=== PATIENT | male | born 1930 | race Caucasian/White ===

== ENCOUNTER 2017-04-14 09:48 | Emergency (ER) | payer MEDICARE, BC ==
[~2017-04-14] VITALS: Ht 5954.8 cm; Wt 97.7 kg
[~2017-04-14 09:48] MED LIST: ACET-2389 PO; ALBU2.5V7 NEB; CHOL2000 PO; DOCU100C40 PO; DUTA1CPM PO; FESO8TAB PO; FOLI1TAB16 PO; FORM20VI IH; FURO40TA4 PO; GABA-532 PO; INSU100I29 SQ; IPRA3AMP9 IH; IRON150C13 PO; LEVO125T PO; LIRA0.6P SQ; LUBI8CAP PO; PANT-47 PO; POTA10CA44 PO; PRAV40TA PO; PRED5TAB PO; RIVA15TA PO; ROFL500T7 PO; SOTA80TA PO; THEO100C PO
[2017-04-14 10:28] LABS: CLARITY,URINE SLIGHTLY CLOUDY (Clear); COLOR,URINE STRAW (Yellow); GLUCOSE, URINE 250 mg/dl (Neg); KETONES,URINE NEGATIVE (Neg); LEUKOCYTE ESTERASE ,URINE NEGATIVE (Neg); NITRITES, URINE NEGATIVE (Neg); OCCULT BLOOD,URINE TRACE-LYSED (Neg); PROTEIN,URINE NEGATIVE (Neg); UROBILINOGEN,URINE 0.2 E.U/dL (0.2-1.0)
[2017-04-14 10:33] LABS: UA COLLECTION TYPE CLN CATCH MIDSTREAM
[2017-04-14 10:34] LABS: HYALINE CASTS 0-3 /LPF (NEGATIVE); MUCUS STRANDS FEW /LPF (Neg); SQUAMOUS EPITHELIAL CELL,UR FEW /LPF (FEW)
[2017-04-14 10:35] LABS: BACTERIA,URINE FEW /HPF (Neg); RBC,URINE 0-2 /HPF (0-2); WBC,URINE 0-4 /HPF (0-4)
[2017-04-14] MEDS ORDERED: CELE-193 PO (11:25)
[2017-04-14] MEDS ORDERED: HYDR-565 PO (11:25)
[2017-04-14] MEDS ORDERED: celeCOXIB 100mg capsule PO ONE (11:25)
[2017-04-14] MEDS ORDERED: HYDROcodone/acetaminophen 10/325mg tab PO ONE (11:25)
[2017-04-14 11:42] VITALS: BP 135/80
== END 2017-04-14 11:44 | disposition home or self-care (01) ==
LOC: ER 09:49
DX: S39.012A Strain of muscle, fascia and tendon of lower back, initial encounter (principal); I11.0 Hypertensive heart disease with heart failure; I50.9 Heart failure, unspecified; J44.9 Chronic obstructive pulmonary disease, unspecified; I48.91 Unspecified atrial fibrillation; I25.10 Atherosclerotic heart disease of native coronary artery without angina pectoris; K21.9 Gastro-esophageal reflux disease without esophagitis; E11.9 Type 2 diabetes mellitus without complications; E78.00 Pure hypercholesterolemia, unspecified; Z86.73 Personal history of transient ischemic attack (TIA), and cerebral infarction without residual deficits; Z88.0 Allergy status to penicillin; Z87.11 Personal history of peptic ulcer disease; Z87.891 Personal history of nicotine dependence; Z88.2 Allergy status to sulfonamides; X58.XXXA Exposure to other specified factors, initial encounter; Y93.89 Activity, other specified; Y92.89 Other specified places as the place of occurrence of the external cause; Y99.8 Other external cause status
CPT/HCPCS: 81001; 99283

== ENCOUNTER 2017-07-01 16:15 | Emergency (ER) | payer MEDICARE, BC ==
[~2017-07-01] VITALS: Ht 177.8 cm; Wt 90.0 kg
[~2017-07-01 16:15] MED LIST changes: +HYDR-569 PO; +MELO7.5T12 PO
[2017-07-01 17:13] LABS: BASOPHILS % (AUTO) 0.2 % (0-1); EOSINOPHILS % (AUTO) 0.3 % (0-6); HEMATOCRIT 39.9 % (42.0-52.0); HEMOGLOBIN 13.4 g/dl (14.0-17.9); LYMPHOCYTES # (AUTO) 1.1 X10'3 (1.1-4.8); LYMPHOCYTES % (AUTO) 8.9 % (21-51); MEAN CORPUSCULAR HEMOGLOBIN 30.5 PG (27.0-31.0); MEAN CORPUSCULAR HGB CONC 33.5 % (33.0-36.5); MEAN CORPUSCULAR VOLUME 91.1 FL (78-98); MEAN PLATELET VOLUME 7.3 FL (7.4-10.4); MONOCYTES # (AUTO) 0.8 X10'3 (0-0.9); MONOCYTES % (AUTO) 6.3 % (2-12); NEUTROPHILS # (AUTO) 10.1 X10'3 (1.8-7.7); NEUTROPHILS % (AUTO) 84.3 % (42-75); PLATELET COUNT 226 X10'3 (140-440); RED BLOOD COUNT 4.38 X10'6 (4.70-6.10)
[2017-07-01 17:27] LABS: PARTIAL THROMBOPLASTIN TIME 29 SECONDS (22-32); PROTHROMBIN TIME 10.5 SECONDS (9.0-12.0)
[2017-07-01 17:31] LABS: ALANINE AMINOTRANSFERASE 41 U/L (12-78); ALBUMIN 3.1 G/DL (3.4-5.0); ALBUMIN/GLOBULIN RATIO 0.8 (1.1-1.5); ALKALINE PHOSPHATASE 100 IU/L (46-116); ANION GAP 9 (8-16); ASPARTATE AMINO TRANSFERASE 24 U/L (10-37); BILIRUBIN,TOTAL 0.4 MG/DL (0.1-1.0); BLOOD UREA NITROGEN 31 MG/DL (7-18); BUN/CREATININE RATIO 20.4 (5.4-32.0); CALCIUM 9.6 MG/DL (8.5-10.1); CHLORIDE 103 MMOL/L (99-107); CREATININE 1.52 MG/DL (0.60-1.10); GLUCOSE 178 MG/DL (70-104); POTASSIUM 4.6 MMOL/L (3.5-5.1); SODIUM 140 MMOL/L (135-145); TOTAL CARBON DIOXIDE 27.7 MMOL/L (24-32); TOTAL PROTEIN 6.8 G/DL (6.4-8.2); eGFR 43 ML/MIN
[2017-07-01] MEDS ORDERED: ipratropium/albuterol 3ml nebule NEB ONE (17:50)
[2017-07-01] MEDS ORDERED: methylPREDNISolone sod succ 125mg/2ml vial IV ONE (17:50)
[2017-07-01 19:41] VITALS: BP 138/95
[2017-07-01] MEDS ORDERED: AZIT250T PO (20:12)
[2017-07-01] MEDS ORDERED: LEVO750T21 PO (20:14)
== END 2017-07-01 20:28 | disposition home or self-care (01) ==
LOC: ER 16:15
DX: J40 Bronchitis, not specified as acute or chronic (principal); J44.9 Chronic obstructive pulmonary disease, unspecified; R22.41 Localized swelling, mass and lump, right lower limb; I25.10 Atherosclerotic heart disease of native coronary artery without angina pectoris; I11.0 Hypertensive heart disease with heart failure; I50.9 Heart failure, unspecified; E11.9 Type 2 diabetes mellitus without complications; K21.9 Gastro-esophageal reflux disease without esophagitis; E78.00 Pure hypercholesterolemia, unspecified; I48.91 Unspecified atrial fibrillation; Z86.73 Personal history of transient ischemic attack (TIA), and cerebral infarction without residual deficits; Z98.890 Other specified postprocedural states; Z88.0 Allergy status to penicillin; Z88.2 Allergy status to sulfonamides; Z79.4 Long term (current) use of insulin; Z79.899 Other long term (current) drug therapy; Z87.891 Personal history of nicotine dependence; Z90.49 Acquired absence of other specified parts of digestive tract; Z87.11 Personal history of peptic ulcer disease
CPT/HCPCS: 36415; 71046; 80053; 83605; 84484; 85025; 85610; 85730; 87040; 93005; 94640; 94760; 96374; 99285; J2930

== ENCOUNTER 2017-09-24 14:54 | Emergency (ER) | payer MEDICARE, BC ==
[~2017-09-24] VITALS: Ht 177.8 cm; Wt 85.8 kg
[2017-09-24] MEDS ORDERED: LIDOcaine 1%/PF 5ML 10 MG/ML VIAL IJ ONE (17:15)
[2017-09-24] MEDS ORDERED: CLIN150C2 PO (18:28)
[2017-09-24] MEDS ORDERED: CEPH-572 PO (18:28)
[2017-09-24 18:52] VITALS: BP 125/89
== END 2017-09-24 18:54 | disposition home or self-care (01) ==
LOC: ER 14:55
DX: S70.11XA Contusion of right thigh, initial encounter (principal); L02.214 Cutaneous abscess of groin; I48.91 Unspecified atrial fibrillation; I25.10 Atherosclerotic heart disease of native coronary artery without angina pectoris; I11.0 Hypertensive heart disease with heart failure; I50.9 Heart failure, unspecified; E78.00 Pure hypercholesterolemia, unspecified; J44.9 Chronic obstructive pulmonary disease, unspecified; K21.9 Gastro-esophageal reflux disease without esophagitis; E11.9 Type 2 diabetes mellitus without complications; Z90.49 Acquired absence of other specified parts of digestive tract; Z98.890 Other specified postprocedural states; Z86.73 Personal history of transient ischemic attack (TIA), and cerebral infarction without residual deficits; Z60.2 Problems related to living alone; Z88.0 Allergy status to penicillin; Z88.2 Allergy status to sulfonamides; Z79.4 Long term (current) use of insulin; Z79.899 Other long term (current) drug therapy; X58.XXXA Exposure to other specified factors, initial encounter; Y93.89 Activity, other specified; Y92.89 Other specified places as the place of occurrence of the external cause; Y99.8 Other external cause status
CPT/HCPCS: 10061; 87070; 87077; 87186; 99285; A6266; A6449; J2001

== ENCOUNTER 2017-10-04 09:50 | Day surgery (SDC) | payer MEDICARE, BC ==
[~2017-10-04 09:50] MED LIST changes: +CLIN150C2 PO
[2017-10-04] MEDS ORDERED: LIDOcaine 2% 5ml jelly ONE (11:48)
[2017-10-04] MEDS ORDERED: LINE600T36 PO (12:37)
== END 2017-10-04 12:49 | disposition home or self-care (01) ==
LOC: WOUND CARE 09:50
PROVIDERS: ATTEND Surgery
DX: E11.622 Type 2 diabetes mellitus with other skin ulcer (principal); L97.221 Non-pressure chronic ulcer of left calf limited to breakdown of skin; L97.211 Non-pressure chronic ulcer of right calf limited to breakdown of skin; L97.111 Non-pressure chronic ulcer of right thigh limited to breakdown of skin; I25.10 Atherosclerotic heart disease of native coronary artery without angina pectoris; J44.9 Chronic obstructive pulmonary disease, unspecified; K21.9 Gastro-esophageal reflux disease without esophagitis; I11.0 Hypertensive heart disease with heart failure; I50.9 Heart failure, unspecified; E78.00 Pure hypercholesterolemia, unspecified; I48.91 Unspecified atrial fibrillation; Z90.49 Acquired absence of other specified parts of digestive tract; Z79.4 Long term (current) use of insulin; Z79.899 Other long term (current) drug therapy; Z86.73 Personal history of transient ischemic attack (TIA), and cerebral infarction without residual deficits
CPT/HCPCS: 36416; 82948; 97597; A6021; A6206; A6212

== ENCOUNTER 2017-10-13 08:42 | Day surgery (SDC) | payer MEDICARE, BC ==
[~2017-10-13 08:42] MED LIST changes: +LINE600T36 PO
[2017-10-13] MEDS ORDERED: LIDOcaine 2% 5ml jelly ONE (09:49)
== END 2017-10-13 11:17 | disposition home or self-care (01) ==
LOC: WOUND CARE 08:42
PROVIDERS: ATTEND Surgery
DX: E11.622 Type 2 diabetes mellitus with other skin ulcer (principal); L97.221 Non-pressure chronic ulcer of left calf limited to breakdown of skin; L97.211 Non-pressure chronic ulcer of right calf limited to breakdown of skin; L97.111 Non-pressure chronic ulcer of right thigh limited to breakdown of skin; I25.10 Atherosclerotic heart disease of native coronary artery without angina pectoris; I80.201 Phlebitis and thrombophlebitis of unspecified deep vessels of right lower extremity; J44.9 Chronic obstructive pulmonary disease, unspecified; K21.9 Gastro-esophageal reflux disease without esophagitis; I11.0 Hypertensive heart disease with heart failure; I50.9 Heart failure, unspecified; E78.00 Pure hypercholesterolemia, unspecified; I48.91 Unspecified atrial fibrillation; Z90.49 Acquired absence of other specified parts of digestive tract; Z79.4 Long term (current) use of insulin; Z79.899 Other long term (current) drug therapy; Z86.73 Personal history of transient ischemic attack (TIA), and cerebral infarction without residual deficits
CPT/HCPCS: 11042; 36416; 82948; 93971; 97597; A6021; A6206; A6212

== ENCOUNTER 2017-10-20 08:24 | Outpatient (CLI) | payer MEDICARE, BC ==
[2017-10-20] MEDS ORDERED: LIDOcaine 2% 5ml jelly ONE (09:24)
== END 2017-10-20 10:43 | disposition home or self-care (01) ==
LOC: WOUND CARE 08:24 → EDSTATUS 08:30 → WOUND CARE 10:43
PROVIDERS: ATTEND Surgery
DX: E11.622 Type 2 diabetes mellitus with other skin ulcer (principal); L97.211 Non-pressure chronic ulcer of right calf limited to breakdown of skin; L97.111 Non-pressure chronic ulcer of right thigh limited to breakdown of skin; I80.201 Phlebitis and thrombophlebitis of unspecified deep vessels of right lower extremity; I25.10 Atherosclerotic heart disease of native coronary artery without angina pectoris; J44.9 Chronic obstructive pulmonary disease, unspecified; K21.9 Gastro-esophageal reflux disease without esophagitis; I11.0 Hypertensive heart disease with heart failure; I50.9 Heart failure, unspecified; E78.00 Pure hypercholesterolemia, unspecified; I48.91 Unspecified atrial fibrillation; I89.0 Lymphedema, not elsewhere classified; Z90.49 Acquired absence of other specified parts of digestive tract; Z79.4 Long term (current) use of insulin; Z79.899 Other long term (current) drug therapy; Z86.73 Personal history of transient ischemic attack (TIA), and cerebral infarction without residual deficits
CPT/HCPCS: 36416; 71046; 82948; 99215; A6021; A6206; A6212

== ENCOUNTER 2017-10-27 08:10 | Day surgery (SDC) | payer MEDICARE, BC ==
[~2017-10-27 08:10] MED LIST changes: -CLIN150C2 PO
[2017-10-27] MEDS ORDERED: LIDOcaine 2% 5ml jelly ONE (09:56)
[2017-10-27] MEDS ORDERED: mupirocin 2% ointment 22GM ONE (10:31)
== END 2017-10-27 11:06 | disposition home or self-care (01) ==
LOC: WOUND CARE 08:10
PROVIDERS: ATTEND Surgery
DX: E11.622 Type 2 diabetes mellitus with other skin ulcer (principal); L97.211 Non-pressure chronic ulcer of right calf limited to breakdown of skin; L97.111 Non-pressure chronic ulcer of right thigh limited to breakdown of skin; I80.201 Phlebitis and thrombophlebitis of unspecified deep vessels of right lower extremity; I25.10 Atherosclerotic heart disease of native coronary artery without angina pectoris; J44.9 Chronic obstructive pulmonary disease, unspecified; K21.9 Gastro-esophageal reflux disease without esophagitis; I11.0 Hypertensive heart disease with heart failure; I50.9 Heart failure, unspecified; E78.00 Pure hypercholesterolemia, unspecified; I48.91 Unspecified atrial fibrillation; I89.0 Lymphedema, not elsewhere classified; Z90.49 Acquired absence of other specified parts of digestive tract; Z79.4 Long term (current) use of insulin; Z79.899 Other long term (current) drug therapy; Z86.73 Personal history of transient ischemic attack (TIA), and cerebral infarction without residual deficits
CPT/HCPCS: 11042; 36416; 82948; 97597; A6021; A6206; A6212; A6446

== ENCOUNTER 2017-11-04 08:15 | Day surgery (SDC) | payer MEDICARE, BC ==
[2017-11-04] MEDS ORDERED: LIDOcaine 2% 5ml jelly ONE (09:35)
== END 2017-11-04 10:36 | disposition home or self-care (01) ==
LOC: WOUND CARE 08:15
PROVIDERS: ATTEND Surgery
DX: E11.622 Type 2 diabetes mellitus with other skin ulcer (principal); L97.211 Non-pressure chronic ulcer of right calf limited to breakdown of skin; L97.111 Non-pressure chronic ulcer of right thigh limited to breakdown of skin; I80.201 Phlebitis and thrombophlebitis of unspecified deep vessels of right lower extremity; I25.10 Atherosclerotic heart disease of native coronary artery without angina pectoris; J44.9 Chronic obstructive pulmonary disease, unspecified; K21.9 Gastro-esophageal reflux disease without esophagitis; I11.0 Hypertensive heart disease with heart failure; I50.9 Heart failure, unspecified; E78.00 Pure hypercholesterolemia, unspecified; I48.91 Unspecified atrial fibrillation; I89.0 Lymphedema, not elsewhere classified; Z90.49 Acquired absence of other specified parts of digestive tract; Z79.4 Long term (current) use of insulin; Z79.899 Other long term (current) drug therapy; Z86.73 Personal history of transient ischemic attack (TIA), and cerebral infarction without residual deficits
CPT/HCPCS: 11042; 97597; A6021; A6206; A6212

== ENCOUNTER 2017-11-11 08:10 | Day surgery (SDC) | payer MEDICARE, BC ==
[2017-11-11] MEDS ORDERED: LIDOcaine 2% 5ml jelly ONE (09:48)
== END 2017-11-11 10:16 | disposition home or self-care (01) ==
LOC: WOUND CARE 08:10
PROVIDERS: ATTEND Surgery
DX: E11.622 Type 2 diabetes mellitus with other skin ulcer (principal); L97.111 Non-pressure chronic ulcer of right thigh limited to breakdown of skin; I80.201 Phlebitis and thrombophlebitis of unspecified deep vessels of right lower extremity; I25.10 Atherosclerotic heart disease of native coronary artery without angina pectoris; J44.9 Chronic obstructive pulmonary disease, unspecified; K21.9 Gastro-esophageal reflux disease without esophagitis; I11.0 Hypertensive heart disease with heart failure; I50.9 Heart failure, unspecified; E78.00 Pure hypercholesterolemia, unspecified; I48.91 Unspecified atrial fibrillation; I89.0 Lymphedema, not elsewhere classified; Z90.49 Acquired absence of other specified parts of digestive tract; Z79.4 Long term (current) use of insulin; Z79.899 Other long term (current) drug therapy; Z86.73 Personal history of transient ischemic attack (TIA), and cerebral infarction without residual deficits
CPT/HCPCS: 36416; 82948; 97597; A6021; A6206; A6212

== ENCOUNTER 2017-11-18 08:10 | Day surgery (SDC) | payer MEDICARE, BC | END 2017-11-18 10:25 | disposition home or self-care (01) | LOC: WOUND CARE 08:10 | PROVIDERS: ATTEND Surgery | DX: E11.622 Type 2 diabetes mellitus with other skin ulcer (principal); L97.111 Non-pressure chronic ulcer of right thigh limited to breakdown of skin; I80.201 Phlebitis and thrombophlebitis of unspecified deep vessels of right lower extremity; I25.10 Atherosclerotic heart disease of native coronary artery without angina pectoris; J44.9 Chronic obstructive pulmonary disease, unspecified; K21.9 Gastro-esophageal reflux disease without esophagitis; I11.0 Hypertensive heart disease with heart failure; I50.9 Heart failure, unspecified; E78.00 Pure hypercholesterolemia, unspecified; I48.91 Unspecified atrial fibrillation; I89.0 Lymphedema, not elsewhere classified; Z90.49 Acquired absence of other specified parts of digestive tract; Z79.4 Long term (current) use of insulin; Z79.899 Other long term (current) drug therapy; Z86.73 Personal history of transient ischemic attack (TIA), and cerebral infarction without residual deficits | CPT/HCPCS: 97597; A6021; A6206; A6212 ==

== ENCOUNTER 2017-11-25 08:10 | Day surgery (SDC) | payer MEDICARE, BC ==
[2017-11-25] MEDS ORDERED: LIDOcaine/PRILOcaine 5gm cream TP ONE (09:46)
== END 2017-11-25 10:16 | disposition home or self-care (01) ==
LOC: WOUND CARE 08:10
PROVIDERS: ATTEND Surgery
DX: E11.622 Type 2 diabetes mellitus with other skin ulcer (principal); L97.111 Non-pressure chronic ulcer of right thigh limited to breakdown of skin; I80.201 Phlebitis and thrombophlebitis of unspecified deep vessels of right lower extremity; I25.10 Atherosclerotic heart disease of native coronary artery without angina pectoris; J44.9 Chronic obstructive pulmonary disease, unspecified; K21.9 Gastro-esophageal reflux disease without esophagitis; I11.0 Hypertensive heart disease with heart failure; I50.9 Heart failure, unspecified; E78.00 Pure hypercholesterolemia, unspecified; I48.91 Unspecified atrial fibrillation; I89.0 Lymphedema, not elsewhere classified; Z90.49 Acquired absence of other specified parts of digestive tract; Z79.4 Long term (current) use of insulin; Z79.899 Other long term (current) drug therapy; Z86.73 Personal history of transient ischemic attack (TIA), and cerebral infarction without residual deficits
CPT/HCPCS: 36416; 82948; 97597; A6021; A6212

== ENCOUNTER 2017-12-09 08:35 | Day surgery (SDC) | payer MEDICARE, BC ==
[~2017-12-09 08:35] MED LIST changes: -LINE600T36 PO
[2017-12-09] MEDS ORDERED: LIDOcaine 1%/PF 5ML 10 MG/ML VIAL ONE (10:11)
== END 2017-12-09 10:33 | disposition home or self-care (01) ==
LOC: WOUND CARE 08:35
PROVIDERS: ATTEND Surgery
DX: E11.622 Type 2 diabetes mellitus with other skin ulcer (principal); L97.111 Non-pressure chronic ulcer of right thigh limited to breakdown of skin; I80.201 Phlebitis and thrombophlebitis of unspecified deep vessels of right lower extremity; L98.491 Non-pressure chronic ulcer of skin of other sites limited to breakdown of skin; L02.414 Cutaneous abscess of left upper limb; I25.10 Atherosclerotic heart disease of native coronary artery without angina pectoris; J44.9 Chronic obstructive pulmonary disease, unspecified; K21.9 Gastro-esophageal reflux disease without esophagitis; I11.0 Hypertensive heart disease with heart failure; I50.9 Heart failure, unspecified; E78.00 Pure hypercholesterolemia, unspecified; I48.91 Unspecified atrial fibrillation; I89.0 Lymphedema, not elsewhere classified; Z90.49 Acquired absence of other specified parts of digestive tract; Z79.4 Long term (current) use of insulin; Z79.899 Other long term (current) drug therapy; Z86.73 Personal history of transient ischemic attack (TIA), and cerebral infarction without residual deficits
CPT/HCPCS: 10061; 36416; 82948; J2001

== ENCOUNTER 2017-12-20 08:30 | Outpatient (CLI) | payer MEDICARE, BC ==
[2017-12-20] MEDS ORDERED: LIDOcaine/PRILOcaine 5gm cream TP ONE (09:50)
== END 2017-12-20 11:09 | disposition home or self-care (01) ==
LOC: EDSTATUS 08:30 → WOUND CARE 08:30
PROVIDERS: ATTEND Surgery
DX: E11.622 Type 2 diabetes mellitus with other skin ulcer (principal); L97.111 Non-pressure chronic ulcer of right thigh limited to breakdown of skin; I80.201 Phlebitis and thrombophlebitis of unspecified deep vessels of right lower extremity; L98.491 Non-pressure chronic ulcer of skin of other sites limited to breakdown of skin; L02.414 Cutaneous abscess of left upper limb; I25.10 Atherosclerotic heart disease of native coronary artery without angina pectoris; J44.9 Chronic obstructive pulmonary disease, unspecified; K21.9 Gastro-esophageal reflux disease without esophagitis; I11.0 Hypertensive heart disease with heart failure; I50.9 Heart failure, unspecified; E78.00 Pure hypercholesterolemia, unspecified; I48.91 Unspecified atrial fibrillation; I89.0 Lymphedema, not elsewhere classified; Z90.49 Acquired absence of other specified parts of digestive tract; Z79.4 Long term (current) use of insulin; Z79.899 Other long term (current) drug therapy; Z86.73 Personal history of transient ischemic attack (TIA), and cerebral infarction without residual deficits
CPT/HCPCS: 36416; 82948; 99215; A6021; A6212

== ENCOUNTER 2017-12-27 08:40 | Day surgery (SDC) | payer MEDICARE, BC ==
[2017-12-27] MEDS ORDERED: LIDOcaine/PRILOcaine 5gm cream TP ONE (09:50)
== END 2017-12-27 10:36 | disposition home or self-care (01) ==
LOC: WOUND CARE 08:40
PROVIDERS: ATTEND Surgery
DX: E11.622 Type 2 diabetes mellitus with other skin ulcer (principal); L89.892 Pressure ulcer of other site, stage 2; L98.492 Non-pressure chronic ulcer of skin of other sites with fat layer exposed; I80.201 Phlebitis and thrombophlebitis of unspecified deep vessels of right lower extremity; L02.414 Cutaneous abscess of left upper limb; I25.10 Atherosclerotic heart disease of native coronary artery without angina pectoris; J44.9 Chronic obstructive pulmonary disease, unspecified; K21.9 Gastro-esophageal reflux disease without esophagitis; I11.0 Hypertensive heart disease with heart failure; I50.9 Heart failure, unspecified; E78.00 Pure hypercholesterolemia, unspecified; I48.91 Unspecified atrial fibrillation; I89.0 Lymphedema, not elsewhere classified; Z90.49 Acquired absence of other specified parts of digestive tract; Z79.4 Long term (current) use of insulin; Z79.899 Other long term (current) drug therapy; Z86.73 Personal history of transient ischemic attack (TIA), and cerebral infarction without residual deficits
CPT/HCPCS: 36416; 82948; 97597; A6021; A6212

== ENCOUNTER 2018-01-10 08:45 | Day surgery (SDC) | payer MEDICARE, BC ==
[~2018-01-10 08:45] MED LIST changes: +HYDR-4383 PO; -HYDR-569 PO
[2018-01-10] MEDS ORDERED: LIDOcaine/PRILOcaine 5gm cream TP ONE (12:22)
== END 2018-01-10 12:33 | disposition home or self-care (01) ==
LOC: WOUND CARE 08:45
PROVIDERS: ATTEND Surgery
DX: E11.622 Type 2 diabetes mellitus with other skin ulcer (principal); L89.892 Pressure ulcer of other site, stage 2; L98.492 Non-pressure chronic ulcer of skin of other sites with fat layer exposed; I80.201 Phlebitis and thrombophlebitis of unspecified deep vessels of right lower extremity; L02.414 Cutaneous abscess of left upper limb; I25.10 Atherosclerotic heart disease of native coronary artery without angina pectoris; J44.9 Chronic obstructive pulmonary disease, unspecified; K21.9 Gastro-esophageal reflux disease without esophagitis; I11.0 Hypertensive heart disease with heart failure; I50.9 Heart failure, unspecified; E78.00 Pure hypercholesterolemia, unspecified; I48.91 Unspecified atrial fibrillation; I89.0 Lymphedema, not elsewhere classified; Z90.49 Acquired absence of other specified parts of digestive tract; Z79.4 Long term (current) use of insulin; Z79.899 Other long term (current) drug therapy; Z86.73 Personal history of transient ischemic attack (TIA), and cerebral infarction without residual deficits
CPT/HCPCS: 36416; 82948; 97597; A6021; A6212

== ENCOUNTER 2018-01-18 09:20 | Day surgery (SDC) | payer MEDICARE, BC | END 2018-01-18 10:38 | disposition home or self-care (01) | LOC: WOUND CARE 09:20 | PROVIDERS: ATTEND Surgery | DX: E11.622 Type 2 diabetes mellitus with other skin ulcer (principal); L89.892 Pressure ulcer of other site, stage 2; L98.492 Non-pressure chronic ulcer of skin of other sites with fat layer exposed; I80.201 Phlebitis and thrombophlebitis of unspecified deep vessels of right lower extremity; L02.414 Cutaneous abscess of left upper limb; I25.10 Atherosclerotic heart disease of native coronary artery without angina pectoris; J44.9 Chronic obstructive pulmonary disease, unspecified; K21.9 Gastro-esophageal reflux disease without esophagitis; I11.0 Hypertensive heart disease with heart failure; I50.9 Heart failure, unspecified; E78.00 Pure hypercholesterolemia, unspecified; I48.91 Unspecified atrial fibrillation; I89.0 Lymphedema, not elsewhere classified; Z90.49 Acquired absence of other specified parts of digestive tract; Z79.4 Long term (current) use of insulin; Z79.899 Other long term (current) drug therapy; Z86.73 Personal history of transient ischemic attack (TIA), and cerebral infarction without residual deficits | CPT/HCPCS: 36416; 82948; 87070; 87075; 87077; 87102; 87186; 97597; A6021; A6212 ==

== ENCOUNTER 2018-01-23 14:45 | Inpatient (IN) | payer MEDICARE, BC ==
[~2018-01-23] VITALS: Ht 180.3 cm; Wt 82.8 kg
[2018-01-23] MEDS ORDERED: ipratropium/albuterol 3ml nebule NEB ONE (15:05)
[2018-01-23] MEDS ORDERED: methylPREDNISolone sod succ 125mg/2ml vial IV ONE (15:05)
[2018-01-23 15:30] LABS: BASOPHILS # (AUTO) 0.1 X10'3 (0-0.2); BASOPHILS % (AUTO) 1.5 % (0-1); EOSINOPHILS # (AUTO) 0.2 X10'3 (0-0.9); EOSINOPHILS % (AUTO) 2.8 % (0-6); HEMATOCRIT 37.6 % (42.0-52.0); LYMPHOCYTES # (AUTO) 0.8 X10'3 (1.1-4.8); MEAN CORPUSCULAR HEMOGLOBIN 29.3 PG (27.0-31.0); MEAN CORPUSCULAR VOLUME 91.4 FL (78-98); MEAN PLATELET VOLUME 8.1 FL (7.4-10.4); MONOCYTES # (AUTO) 0.5 X10'3 (0-0.9); MONOCYTES % (AUTO) 6.1 % (2-12); NEUTROPHILS % (AUTO) 80.6 % (42-75); PLATELET COUNT 214 X10'3 (140-440); RED BLOOD COUNT 4.11 X10'6 (4.70-6.10); RED CELL DISTRIBUTION WIDTH 15.1 % (11.5-14.5); WHITE BLOOD COUNT 8.6 X10'3 (4.5-11.0)
[2018-01-23 15:43] LABS: ALANINE AMINOTRANSFERASE 19 U/L (12-78); ALBUMIN 2.5 G/DL (3.4-5.0); ALBUMIN/GLOBULIN RATIO 0.8 (1.1-1.5); ALKALINE PHOSPHATASE 63 IU/L (46-116); ANION GAP 6 (8-16); ASPARTATE AMINO TRANSFERASE 16 U/L (10-37); BILIRUBIN,TOTAL 0.4 MG/DL (0.1-1.0); BLOOD UREA NITROGEN 33 MG/DL (7-18); BUN/CREATININE RATIO 21.2 (5.4-32.0); CHLORIDE 107 MMOL/L (99-107); CREATININE 1.56 MG/DL (0.60-1.10); GLUCOSE 150 MG/DL (70-104); POTASSIUM 4.5 MMOL/L (3.5-5.1); SODIUM 141 MMOL/L (135-145); TOTAL PROTEIN 5.6 G/DL (6.4-8.2); eGFR 42 ML/MIN
[2018-01-23 15:51] LABS: TROPONIN I < 0.04 NG/ML (0.0-0.05)
[2018-01-23] MEDS ORDERED: furosemide 10 MG/1 ML 10ml inj IV ONE (16:00)
[2018-01-23] MEDS ORDERED: ACET-2389 PO (16:52)
[2018-01-23] MEDS ORDERED: ondansetron/PF 4mg/2ml inj IV PRN (17:10)
[2018-01-23] MEDS ORDERED: magnesium 1gm/100ml D5W IVPB 100 ML IV PRN (17:10)
[2018-01-23] MEDS ORDERED: mag hydrox/Alum hydrox/simeth 30ml oral suspension PO PRN (17:10)
[2018-01-23] MEDS ORDERED: albuterol 2.5 MG/3 ML nebule NEB PRN (17:10)
[2018-01-23] MEDS ORDERED: magnesium Cl slow-release 64mg tablet PO PRN (17:10)
[2018-01-23] MEDS ORDERED: magnesium hydroxide 30ml (MOM) UD suspension PO PRN (17:10)
[2018-01-23] MEDS ORDERED: dextrose 50%-water 50ml dispensing syringe IV PRN ×2 (17:10)
[2018-01-23] MEDS ORDERED: dextrose ORAL solution 15 GM/59 ML bottle PO PRN ×2 (17:10)
[2018-01-23] MEDS ORDERED: glucagon, human recombinant 1mg kit SUBCUT PRN (17:10)
[2018-01-23] MEDS ORDERED: potassium Cl 40MEQ/NS 500ml 500 ML IV PRN ×2 (17:10)
[2018-01-23] MEDS ORDERED: magnesium 4gm in 100ml NS 100 ML IV PRN (17:10)
[2018-01-23] MEDS ORDERED: azithromycin/NS 500mg/250ml 250 ML IV ONE (17:10)
[2018-01-23] MEDS ORDERED: potassium Cl 20 mEq SR tablet PO PRN ×2 (17:10)
[2018-01-23] MEDS ORDERED: MESSAGE TO PHARMACY PO ONE (17:10)
[2018-01-23] MEDS ORDERED: acetaminophen 325mg tablet PO PRN ×2 (17:10→17:30)
[2018-01-23] MEDS ORDERED: ACETAMINOPHEN PO PRN (17:20)
[2018-01-23] MEDS ORDERED: potassium chloride 10mEq CAPSULE.SA PO PRN (17:20)
[2018-01-23] MEDS: ipratropium/albuterol 3ml nebule NEB SCH ×2 (18:54→22:58)
[2018-01-23 19:10] VITALS: BP 132/74
[2018-01-23] MEDS: PERFOROMIST 20 MCG/2 ML IH SCH (19:42)
[2018-01-23] MEDS: AMITIZA 8 MCG PO SCH (19:43)
[2018-01-23] MEDS ORDERED: LUBIPROSTONE PO SCH (20:00)
[2018-01-23] MEDS ORDERED: FORMOTEROL FUMARATE 20 MCG IH SCH (20:00)
[2018-01-23] MEDS: insulin glargine (Lantus) pen - multi-dose SQ SCH (21:00)
[2018-01-23] MEDS ORDERED: TAMSULOSIN HCL PO SCH (21:00)
[2018-01-23] MEDS ORDERED: temazepam 15mg capsule PO PRN (21:00)
[2018-01-23] MEDS ORDERED: DUTASTERIDE PO SCH (21:00)
[2018-01-23] MEDS: dutasteride 0.5 MG capsule PO SCH (21:01)
[2018-01-23] MEDS: sotalol 80mg tablet PO SCH (21:01)
[2018-01-23] MEDS: gabapentin 300mg capsule PO SCH (21:03)
[2018-01-23] MEDS: methylPREDNISolone sod succ 125mg/2ml vial IV SCH (21:03)
[2018-01-23] MEDS: oxybutynin 5mg tablet PO SCH (21:03)
[2018-01-23] MEDS: furosemide 40mg tablet PO SCH (21:04)
[2018-01-23] MEDS: rivaroxaban 15mg tablet PO SCH (21:04)
[2018-01-23] MEDS: tamsulosin 0.4mg capsule PO SCH (21:04)
[2018-01-24] VITALS: BP 117/67
[2018-01-24] MEDS: ipratropium/albuterol 3ml nebule NEB SCH ×6 (03:07→23:04)
[2018-01-24 06:37] LABS: BASOPHILS # (AUTO) 0.1 X10'3 (0-0.2); BASOPHILS % (AUTO) 1.2 % (0-1); EOSINOPHILS % (AUTO) 0.7 % (0-6); HEMATOCRIT 37.5 % (42.0-52.0); LYMPHOCYTES # (AUTO) 0.8 X10'3 (1.1-4.8); LYMPHOCYTES % (AUTO) 12.5 % (21-51); MEAN CORPUSCULAR HEMOGLOBIN 29.1 PG (27.0-31.0); MEAN CORPUSCULAR VOLUME 90.8 FL (78-98); MEAN PLATELET VOLUME 8.4 FL (7.4-10.4); MONOCYTES # (AUTO) 0.1 X10'3 (0-0.9); MONOCYTES % (AUTO) 1.2 % (2-12); NEUTROPHILS # (AUTO) 5.4 X10'3 (1.8-7.7); NEUTROPHILS % (AUTO) 84.4 % (42-75); PLATELET COUNT 197 X10'3 (140-440); RED BLOOD COUNT 4.13 X10'6 (4.70-6.10); RED CELL DISTRIBUTION WIDTH 14.3 % (11.5-14.5); WHITE BLOOD COUNT 6.4 X10'3 (4.5-11.0)
[2018-01-24 06:46] LABS: ALBUMIN 2.5 G/DL (3.4-5.0); ANION GAP 9 (8-16); BLOOD UREA NITROGEN 36 MG/DL (7-18); BUN/CREATININE RATIO 22.8 (5.4-32.0); CALCIUM 9.1 MG/DL (8.5-10.1); CHLORIDE 106 MMOL/L (99-107); CREATININE 1.58 MG/DL (0.60-1.10); GLUCOSE 202 MG/DL (70-104); MAGNESIUM 1.7 MG/DL (1.5-2.4); POTASSIUM 3.8 MMOL/L (3.5-5.1); SODIUM 143 MMOL/L (135-145); TOTAL CARBON DIOXIDE 28.4 MMOL/L (24-32); eGFR 42 ML/MIN
[2018-01-24 07:00] VITALS: BP 125/66
[2018-01-24] MEDS ORDERED: FESOTERODINE FUMARATE PO SCH (07:00)
[2018-01-24] MEDS ORDERED: pravastatin 40mg tablet PO SCH (07:00)
[2018-01-24] MEDS: oxybutynin 5mg tablet PO SCH ×3 (07:48→20:42)
[2018-01-24] MEDS: furosemide 40mg tablet PO SCH (07:48)
[2018-01-24] MEDS: pantoprazole 40mg Tablet.DR PO SCH (07:48)
[2018-01-24] MEDS: theophylline anhydrous 100mg ER capsule 24-hour PO SCH (07:48)
[2018-01-24] MEDS: gabapentin 300mg capsule PO SCH ×2 (07:49→20:40)
[2018-01-24] MEDS: folic acid 1mg tablet PO SCH (07:49)
[2018-01-24] MEDS: vitamin D (cholecalciferol) 1,000 unit tablet PO SCH (07:49)
[2018-01-24] MEDS: iron polysaccharide complex 150mg capsule PO SCH (07:49)
[2018-01-24] MEDS: methylPREDNISolone sod succ 125mg/2ml vial IV SCH ×2 (07:50→23:30)
[2018-01-24] MEDS ORDERED: non-formulary drug (Roflumilast (Daliresp) 1 TAB) PO SCH (08:00)
[2018-01-24] MEDS: AMITIZA 8 MCG PO SCH ×2 (08:00→20:39)
[2018-01-24] MEDS: VICTOZA 0.6 MG/0.1 ML SQ SCH (08:00)
[2018-01-24] MEDS ORDERED: levoTHYROXINE 125mcg tablet PO SCH (08:00)
[2018-01-24] MEDS: K and/or MAG REPLACEMENT MC SCH (08:00)
[2018-01-24] MEDS ORDERED: non-formulary drug (Cholecalciferol (Vitamin D3) (Vitamin D) 1 CAP) PO SCH (08:00)
[2018-01-24] MEDS ORDERED: LIRAGLUTIDE 1.2 MG SQ SCH (08:00)
[2018-01-24] MEDS: PERFOROMIST 20 MCG/2 ML IH SCH ×2 (08:00→19:42)
[2018-01-24] MEDS: roflumilast 500mcg tablet PO SCH (08:39)
[2018-01-24] MEDS: sotalol 80mg tablet PO SCH ×2 (08:39→20:39)
[2018-01-24 12:00] VITALS: BP 120/67
[2018-01-24] MEDS: pravastatin 40mg tablet PO SCH (12:15)
[2018-01-24 12:23] VITALS: BP 108/66
[2018-01-24] MEDS ORDERED: albuterol 2.5 MG/3 ML nebule NEB PRN (16:25)
[2018-01-24] MEDS ORDERED: levoFLOXACIN-Levaquin 500mg/D5 100 ML IV SCH (16:30)
[2018-01-24 19:45] VITALS: BP 109/61
[2018-01-24] MEDS ORDERED: heparin, porcine 5000 units/ml vial SQ SCH (20:00)
[2018-01-24] MEDS: insulin Lispro (HumaLOG) vial - multi-dose SQ SCH (20:36)
[2018-01-24] MEDS: clindamycin 150mg capsule PO SCH (20:40)
[2018-01-24] MEDS: tamsulosin 0.4mg capsule PO SCH (20:40)
[2018-01-24] MEDS: dutasteride 0.5 MG capsule PO SCH (20:42)
[2018-01-24] MEDS: rivaroxaban 15mg tablet PO SCH (20:42)
[2018-01-24] MEDS: furosemide 20MG tablet PO SCH (20:43)
[2018-01-24] MEDS: insulin glargine (Lantus) pen - multi-dose SQ SCH (20:48)
[2018-01-25] VITALS: BP 105/53
[2018-01-25] MEDS: clindamycin 150mg capsule PO SCH ×4 (02:09→20:34)
[2018-01-25] MEDS: ipratropium/albuterol 3ml nebule NEB SCH ×6 (03:10→23:01)
[2018-01-25 05:55] LABS: ALBUMIN 2.6 G/DL (3.4-5.0); ANION GAP 9 (8-16); BLOOD UREA NITROGEN 50 MG/DL (7-18); BUN/CREATININE RATIO 23.7 (5.4-32.0); CALCIUM 9.2 MG/DL (8.5-10.1); CHLORIDE 102 MMOL/L (99-107); CREATININE 2.11 MG/DL (0.60-1.10); GLUCOSE 231 MG/DL (70-104); MAGNESIUM 1.8 MG/DL (1.5-2.4); POTASSIUM 3.8 MMOL/L (3.5-5.1); SODIUM 141 MMOL/L (135-145); TOTAL CARBON DIOXIDE 30.3 MMOL/L (24-32); eGFR 30 ML/MIN
[2018-01-25] MEDS: levoTHYROXINE 100mcg tablet PO SCH (07:14)
[2018-01-25 07:50] VITALS: BP 130/61
[2018-01-25] MEDS: K and/or MAG REPLACEMENT MC SCH (08:00)
[2018-01-25] MEDS: VICTOZA 0.6 MG/0.1 ML SQ SCH (08:00)
[2018-01-25] MEDS: PERFOROMIST 20 MCG/2 ML IH SCH ×2 (08:09→19:09)
[2018-01-25] MEDS: folic acid 1mg tablet PO SCH (08:15)
[2018-01-25] MEDS: oxybutynin 5mg tablet PO SCH ×3 (08:16→20:34)
[2018-01-25] MEDS: iron polysaccharide complex 150mg capsule PO SCH (08:17)
[2018-01-25] MEDS: furosemide 20MG tablet PO SCH (08:17)
[2018-01-25] MEDS: gabapentin 300mg capsule PO SCH ×2 (08:18→20:33)
[2018-01-25] MEDS: roflumilast 500mcg tablet PO SCH (08:18)
[2018-01-25] MEDS: sotalol 80mg tablet PO SCH ×2 (08:19→20:35)
[2018-01-25] MEDS: theophylline anhydrous 100mg ER capsule 24-hour PO SCH (08:20)
[2018-01-25] MEDS: vitamin D (cholecalciferol) 1,000 unit tablet PO SCH (08:20)
[2018-01-25] MEDS: pantoprazole 40mg Tablet.DR PO SCH (08:21)
[2018-01-25] MEDS: AMITIZA 8 MCG PO SCH ×2 (08:21→20:34)
[2018-01-25] MEDS: methylPREDNISolone sod succ 125mg/2ml vial IV SCH ×2 (08:32→20:33)
[2018-01-25] MEDS: insulin Lispro (HumaLOG) vial - multi-dose SQ SCH ×2 (08:41→18:28)
[2018-01-25] MEDS: potassium Cl 20mEq in NS 1,000 ML IV SCH ×2 (09:02→22:12)
[2018-01-25 10:28] VITALS: BP 112/69
[2018-01-25] MEDS: pravastatin 40mg tablet PO SCH (11:40)
[2018-01-25 12:10] VITALS: BP 119/62
[2018-01-25 19:33] VITALS: BP 114/51
[2018-01-25] MEDS: lactobacillus rhamnosus 10,000 MMU CELLS/CAPSULE PO SCH (20:34)
[2018-01-25] MEDS: dutasteride 0.5 MG capsule PO SCH (20:34)
[2018-01-25] MEDS: tamsulosin 0.4mg capsule PO SCH (20:34)
[2018-01-25] MEDS: rivaroxaban 15mg tablet PO SCH (20:34)
[2018-01-25] MEDS: insulin glargine (Lantus) pen - multi-dose SQ SCH (20:44)
[2018-01-26] VITALS: BP 128/66
[2018-01-26] MEDS: clindamycin 150mg capsule PO SCH ×4 (02:20→20:15)
[2018-01-26] MEDS: ipratropium/albuterol 3ml nebule NEB SCH ×6 (03:18→23:18)
[2018-01-26 05:39] LABS: ALBUMIN 2.5 G/DL (3.4-5.0); ANION GAP 5 (8-16); BLOOD UREA NITROGEN 55 MG/DL (7-18); BUN/CREATININE RATIO 31.4 (5.4-32.0); CALCIUM 8.4 MG/DL (8.5-10.1); CHLORIDE 104 MMOL/L (99-107); CREATININE 1.75 MG/DL (0.60-1.10); GLUCOSE 204 MG/DL (70-104); MAGNESIUM 1.9 MG/DL (1.5-2.4); POTASSIUM 4.1 MMOL/L (3.5-5.1); SODIUM 139 MMOL/L (135-145); TOTAL CARBON DIOXIDE 29.6 MMOL/L (24-32); eGFR 37 ML/MIN
[2018-01-26 06:57] VITALS: BP 125/56
[2018-01-26] MEDS: K and/or MAG REPLACEMENT MC SCH (08:00)
[2018-01-26] MEDS: PERFOROMIST 20 MCG/2 ML IH SCH ×2 (08:00→19:17)
[2018-01-26] MEDS: methylPREDNISolone sod succ 125mg/2ml vial IV SCH ×3 (09:07→16:30)
[2018-01-26] MEDS: insulin Lispro (HumaLOG) vial - multi-dose SQ SCH ×3 (09:18→18:48)
[2018-01-26] MEDS: levoTHYROXINE 100mcg tablet PO SCH (09:22)
[2018-01-26] MEDS: gabapentin 300mg capsule PO SCH ×2 (09:22→20:16)
[2018-01-26] MEDS: theophylline anhydrous 100mg ER capsule 24-hour PO SCH (09:22)
[2018-01-26] MEDS: pantoprazole 40mg Tablet.DR PO SCH (09:23)
[2018-01-26] MEDS: roflumilast 500mcg tablet PO SCH (09:24)
[2018-01-26] MEDS: oxybutynin 5mg tablet PO SCH ×3 (09:24→20:17)
[2018-01-26] MEDS: lactobacillus rhamnosus 10,000 MMU CELLS/CAPSULE PO SCH ×2 (09:24→20:16)
[2018-01-26] MEDS: iron polysaccharide complex 150mg capsule PO SCH (09:24)
[2018-01-26] MEDS: AMITIZA 8 MCG PO SCH ×2 (09:25→20:16)
[2018-01-26] MEDS: folic acid 1mg tablet PO SCH (09:25)
[2018-01-26] MEDS: vitamin D (cholecalciferol) 1,000 unit tablet PO SCH (09:25)
[2018-01-26] MEDS: sotalol 80mg tablet PO SCH ×2 (09:27→20:15)
[2018-01-26] MEDS: potassium Cl 20mEq in NS 1,000 ML IV SCH (11:54)
[2018-01-26 12:49] VITALS: BP 123/54
[2018-01-26] MEDS: pravastatin 40mg tablet PO SCH (13:41)
[2018-01-26] MEDS: guaiFENesin 200 MG/10 ML oral syrup UD cup PO SCH ×2 (13:43→20:17)
[2018-01-26 20:00] VITALS: BP 114/67
[2018-01-26] MEDS: dutasteride 0.5 MG capsule PO SCH (20:17)
[2018-01-26] MEDS: rivaroxaban 15mg tablet PO SCH (20:18)
[2018-01-26] MEDS: tamsulosin 0.4mg capsule PO SCH (20:18)
[2018-01-26] MEDS: insulin glargine (Lantus) pen - multi-dose SQ SCH (20:39)
[2018-01-27] VITALS: BP 112/76
[2018-01-27] MEDS: methylPREDNISolone sod succ 125mg/2ml vial IV SCH ×2 (00:45→09:28)
[2018-01-27] MEDS: clindamycin 150mg capsule PO SCH ×3 (02:33→13:42)
[2018-01-27] MEDS: guaiFENesin 200 MG/10 ML oral syrup UD cup PO SCH ×3 (02:33→13:43)
[2018-01-27] MEDS: ipratropium/albuterol 3ml nebule NEB SCH ×4 (03:49→15:00)
[2018-01-27 05:54] LABS: ALBUMIN 2.8 G/DL (3.4-5.0); ANION GAP 10 (8-16); BLOOD UREA NITROGEN 50 MG/DL (7-18); BUN/CREATININE RATIO 31.8 (5.4-32.0); CALCIUM 8.9 MG/DL (8.5-10.1); CHLORIDE 103 MMOL/L (99-107); CREATININE 1.57 MG/DL (0.60-1.10); GLUCOSE 178 MG/DL (70-104); MAGNESIUM 2.2 MG/DL (1.5-2.4); POTASSIUM 4.2 MMOL/L (3.5-5.1); SODIUM 141 MMOL/L (135-145); TOTAL CARBON DIOXIDE 27.8 MMOL/L (24-32); eGFR 42 ML/MIN
[2018-01-27 06:58] VITALS: BP 136/66
[2018-01-27] MEDS: PERFOROMIST 20 MCG/2 ML IH SCH (07:09)
[2018-01-27] MEDS: K and/or MAG REPLACEMENT MC SCH (08:00)
[2018-01-27] MEDS ORDERED: theophylline anhydrous 100mg ER capsule 24-hour PO SCH (08:00)
[2018-01-27] MEDS: oxybutynin 5mg tablet PO SCH ×2 (08:19→13:42)
[2018-01-27] MEDS: lactobacillus rhamnosus 10,000 MMU CELLS/CAPSULE PO SCH (08:19)
[2018-01-27] MEDS: iron polysaccharide complex 150mg capsule PO SCH (08:20)
[2018-01-27] MEDS: gabapentin 300mg capsule PO SCH (08:20)
[2018-01-27] MEDS: folic acid 1mg tablet PO SCH (08:20)
[2018-01-27] MEDS: pantoprazole 40mg Tablet.DR PO SCH (08:21)
[2018-01-27] MEDS: AMITIZA 8 MCG PO SCH (08:21)
[2018-01-27] MEDS: levoTHYROXINE 100mcg tablet PO SCH (08:22)
[2018-01-27] MEDS: vitamin D (cholecalciferol) 1,000 unit tablet PO SCH (08:23)
[2018-01-27] MEDS: insulin Lispro (HumaLOG) vial - multi-dose SQ SCH ×2 (08:28→13:09)
[2018-01-27] MEDS: sotalol 80mg tablet PO SCH (09:29)
[2018-01-27] MEDS: roflumilast 500mcg tablet PO SCH (09:29)
[2018-01-27 11:19] VITALS: BP 119/75
[2018-01-27] MEDS: pravastatin 40mg tablet PO SCH (13:41)
[2018-01-27] MEDS ORDERED: CLE150C PO (14:31)
[2018-01-27] MEDS ORDERED: PRED10TA23 PO (14:31)
== END 2018-01-27 16:49 | disposition home or self-care (01) | DRG 190 ==
LOC: ER 14:45 → ED HOLD 17:09 → EDBEDREQ 18:22 → SUR 3N 19:11
PROVIDERS: ADMIT Hospitalist; ATTEND Internal Medicine
PROC: 3E02340 Introduction of Influenza Vaccine into Muscle, Percutaneous Approach (ICD-10-PCS; principal; 2018-01-24)
PROC: 5A09357 Assistance with Respiratory Ventilation, Less than 24 Consecutive Hours, Continuous Positive Airway Pressure (ICD-10-PCS; 2018-01-25)
PROC: 5A09357 Assistance with Respiratory Ventilation, Less than 24 Consecutive Hours, Continuous Positive Airway Pressure (ICD-10-PCS; 2018-01-26)
DX: J44.1 Chronic obstructive pulmonary disease with (acute) exacerbation (principal); I50.33 Acute on chronic diastolic (congestive) heart failure; N17.9 Acute kidney failure, unspecified; E46 Unspecified protein-calorie malnutrition; J96.10 Chronic respiratory failure, unspecified whether with hypoxia or hypercapnia; I13.0 Hypertensive heart and chronic kidney disease with heart failure and stage 1 through stage 4 chronic kidney disease, or unspecified chronic kidney disease; J44.0 Chronic obstructive pulmonary disease with (acute) lower respiratory infection; J20.9 Acute bronchitis, unspecified; E11.22 Type 2 diabetes mellitus with diabetic chronic kidney disease; N18.3 Chronic kidney disease, stage 3 (moderate); E03.9 Hypothyroidism, unspecified; E78.00 Pure hypercholesterolemia, unspecified; Z60.2 Problems related to living alone; E78.5 Hyperlipidemia, unspecified; I25.10 Atherosclerotic heart disease of native coronary artery without angina pectoris; Z96.643 Presence of artificial hip joint, bilateral; I48.91 Unspecified atrial fibrillation; K21.9 Gastro-esophageal reflux disease without esophagitis; Z96.653 Presence of artificial knee joint, bilateral; Z23 Encounter for immunization; Z90.49 Acquired absence of other specified parts of digestive tract; Z88.0 Allergy status to penicillin; Z88.2 Allergy status to sulfonamides; Z87.11 Personal history of peptic ulcer disease; Z87.891 Personal history of nicotine dependence; Z86.73 Personal history of transient ischemic attack (TIA), and cerebral infarction without residual deficits; Z82.3 Family history of stroke; Z79.899 Other long term (current) drug therapy
CPT/HCPCS: 36415; 71045; 80048; 80053; 82948; 83036; 83605; 83735; 83880; 84443; 84484; 85025; 87040; 87070; 93005; 93306; 94640; 94760; 96374; 96375; 97110; 97116; 97162; 99285; G0378; J0456; J1815; J1940; J1956; J2930

== ENCOUNTER 2018-01-29 07:58 | Emergency (ER) | payer MEDICARE, BC ==
[~2018-01-29] VITALS: Ht 180.3 cm; Wt 86.3 kg
[~2018-01-29 07:58] MED LIST changes: +CLE150C PO; -DOCU100C40 PO; -HYDR-4383 PO; -INSU100I29 SQ; -IPRA3AMP9 IH; -MELO7.5T12 PO
[2018-01-29 09:14] LABS: BASOPHILS # (AUTO) 0.1 X10'3 (0-0.2); BASOPHILS % (AUTO) 0.4 % (0-1); EOSINOPHILS # (AUTO) 0.1 X10'3 (0-0.9); EOSINOPHILS % (AUTO) 0.7 % (0-6); HEMATOCRIT 46.6 % (42.0-52.0); HEMOGLOBIN 14.9 g/dl (14.0-17.9); LYMPHOCYTES # (AUTO) 1.1 X10'3 (1.1-4.8); LYMPHOCYTES % (AUTO) 8.4 % (21-51); MEAN CORPUSCULAR VOLUME 90.5 FL (78-98); MEAN PLATELET VOLUME 8.1 FL (7.4-10.4); MONOCYTES # (AUTO) 1.1 X10'3 (0-0.9); MONOCYTES % (AUTO) 7.9 % (2-12); NEUTROPHILS # (AUTO) 11.1 X10'3 (1.8-7.7); NEUTROPHILS % (AUTO) 82.6 % (42-75); PLATELET COUNT 283 X10'3 (140-440); RED BLOOD COUNT 5.15 X10'6 (4.70-6.10); RED CELL DISTRIBUTION WIDTH 14.9 % (11.5-14.5); WHITE BLOOD COUNT 13.4 X10'3 (4.5-11.0)
[2018-01-29 09:24] LABS: ALANINE AMINOTRANSFERASE 25 U/L (12-78); ALBUMIN 2.8 G/DL (3.4-5.0); ALBUMIN/GLOBULIN RATIO 0.9 (1.1-1.5); ALKALINE PHOSPHATASE 72 IU/L (46-116); ANION GAP 8 (8-16); ASPARTATE AMINO TRANSFERASE 27 U/L (10-37); BILIRUBIN,TOTAL 0.9 MG/DL (0.1-1.0); BLOOD UREA NITROGEN 47 MG/DL (7-18); CALCIUM 9.1 MG/DL (8.5-10.1); CHLORIDE 105 MMOL/L (99-107); CREATININE 1.62 MG/DL (0.60-1.10); GLUCOSE 77 MG/DL (70-104); POTASSIUM 3.5 MMOL/L (3.5-5.1); SODIUM 141 MMOL/L (135-145); eGFR 40 ML/MIN
[2018-01-29 09:33] LABS: ETHANOL < 0.010 GM/DL (0.0-0.010)
[2018-01-29] MEDS ORDERED: ipratropium/albuterol 3ml nebule NEB ONE (10:00)
[2018-01-29] MEDS ORDERED: LORazepam 1 MG tablet PO ONE (10:55)
[2018-01-29] MEDS ORDERED: LORazepam 0.5 MG tablet PO ONE (11:05)
[2018-01-29 11:06] LABS: CLARITY,URINE CLEAR (Clear); COLOR,URINE YELLOW (Yellow); GLUCOSE, URINE NEGATIVE (Neg); KETONES,URINE TRACE mg/dl (Neg); LEUKOCYTE ESTERASE ,URINE NEGATIVE (Neg); NITRITES, URINE NEGATIVE (Neg); OCCULT BLOOD,URINE TRACE-INTACT (Neg); PROTEIN,URINE NEGATIVE (Neg); UROBILINOGEN,URINE 0.2 E.U/dL (0.2-1.0)
[2018-01-29 11:07] LABS: UA COLLECTION TYPE CLN CATCH MIDSTREAM
[2018-01-29 11:11] LABS: URINE AMPHETAMINE SCREEN NEGATIVE (Neg); URINE BARBITUATE SCREEN NEGATIVE (Neg); URINE BENZODIAZEPINES SCREEN NEGATIVE (Neg); URINE CANNABINOID SCREEN NEGATIVE (Neg); URINE COCAINE SCREEN NEGATIVE (Neg); URINE METHADONE SCREEN NEGATIVE (Neg); URINE OPIATE SCREEN NEGATIVE (Neg); URINE PHENCYCLIDINE SCREEN NEGATIVE (Neg)
[2018-01-29 11:12] LABS: BACTERIA,URINE NONE SEEN /HPF (Neg); HYALINE CASTS 0-3 /LPF (NEGATIVE); MUCUS STRANDS FEW /LPF (Neg); RBC,URINE 0-2 /HPF (0-2); SQUAMOUS EPITHELIAL CELL,UR NONE SEEN /LPF (FEW); WBC,URINE 0-4 /HPF (0-4)
[2018-01-29] MEDS ORDERED: HYDR25CA PO (16:51)
[2018-01-29] MEDS ORDERED: MIRT15TA PO (16:51)
[2018-01-29 17:44] VITALS: BP 134/93
== END 2018-01-29 18:09 | disposition home or self-care (01) ==
LOC: ER 07:59
DX: F32.9 Major depressive disorder, single episode, unspecified (principal); R45.851 Suicidal ideations; J44.9 Chronic obstructive pulmonary disease, unspecified; F41.9 Anxiety disorder, unspecified; E78.00 Pure hypercholesterolemia, unspecified; E11.22 Type 2 diabetes mellitus with diabetic chronic kidney disease; I12.9 Hypertensive chronic kidney disease with stage 1 through stage 4 chronic kidney disease, or unspecified chronic kidney disease; N18.9 Chronic kidney disease, unspecified; I48.91 Unspecified atrial fibrillation; I25.10 Atherosclerotic heart disease of native coronary artery without angina pectoris; K21.9 Gastro-esophageal reflux disease without esophagitis; Z90.49 Acquired absence of other specified parts of digestive tract; Z98.890 Other specified postprocedural states; Z87.11 Personal history of peptic ulcer disease; Z88.0 Allergy status to penicillin; Z88.2 Allergy status to sulfonamides; Z79.899 Other long term (current) drug therapy
CPT/HCPCS: 36415; 80053; 80305; 80320; 81001; 84443; 85025; 93005; 94640; 94760; 99285

== ENCOUNTER 2018-02-02 12:28 | Inpatient (IN) | payer MEDICARE, BC ==
[~2018-02-02] VITALS: Ht 177.8 cm; Wt 76.0 kg
[~2018-02-02 12:28] MED LIST changes: +HYDR25CA PO; +MIRT15TA PO
[2018-02-02] MEDS ORDERED: normal saline 1000ML IV soln IVB ONE ×2 (12:50→16:20)
[2018-02-02] MEDS ORDERED: normal saline 1000ml 1,000 ML IV ONE (13:15)
[2018-02-02 13:26] LABS: BASOPHILS # (AUTO) 0.2 X10'3 (0-0.2); BASOPHILS % (AUTO) 1.3 % (0-1); EOSINOPHILS # (AUTO) 0.1 X10'3 (0-0.9); EOSINOPHILS % (AUTO) 0.7 % (0-6); HEMATOCRIT 36.4 % (42.0-52.0); HEMOGLOBIN 11.6 g/dl (14.0-17.9); LYMPHOCYTES # (AUTO) 1.1 X10'3 (1.1-4.8); LYMPHOCYTES % (AUTO) 6.5 % (21-51); MEAN CORPUSCULAR HEMOGLOBIN 29.1 PG (27.0-31.0); MEAN CORPUSCULAR VOLUME 90.9 FL (78-98); MEAN PLATELET VOLUME 9.5 FL (7.4-10.4); MONOCYTES # (AUTO) 1.3 X10'3 (0-0.9); MONOCYTES % (AUTO) 7.4 % (2-12); NEUTROPHILS # (AUTO) 14.5 X10'3 (1.8-7.7); NEUTROPHILS % (AUTO) 84.1 % (42-75); PLATELET COUNT 260 X10'3 (140-440); RED CELL DISTRIBUTION WIDTH 14.8 % (11.5-14.5); WHITE BLOOD COUNT 17.2 X10'3 (4.5-11.0)
[2018-02-02 13:32] LABS: ALANINE AMINOTRANSFERASE 15 U/L (12-78); ALBUMIN 2.1 G/DL (3.4-5.0); ALBUMIN/GLOBULIN RATIO 0.8 (1.1-1.5); ALKALINE PHOSPHATASE 62 IU/L (46-116); ANION GAP 8 (8-16); ASPARTATE AMINO TRANSFERASE 13 U/L (10-37); BILIRUBIN,TOTAL 0.4 MG/DL (0.1-1.0); BLOOD UREA NITROGEN 37 MG/DL (7-18); CALCIUM 8.6 MG/DL (8.5-10.1); CHLORIDE 107 MMOL/L (99-107); CREATININE 1.61 MG/DL (0.60-1.10); GLUCOSE 203 MG/DL (70-104); POTASSIUM 4.2 MMOL/L (3.5-5.1); SODIUM 142 MMOL/L (135-145); TOTAL PROTEIN 4.9 G/DL (6.4-8.2); eGFR 41 ML/MIN
[2018-02-02 13:49] LABS: INR 1.2 INR; PARTIAL THROMBOPLASTIN TIME 25 SECONDS (22-32)
[2018-02-02] MEDS ORDERED: levoFLOXACIN-Levaquin 750MG/D5 150 ML IV ONE (13:55)
[2018-02-02] MEDS ORDERED: tranexamic acid inj. 1,000 MG in normal saline 100ml IV soln 90 ML IV ONE (14:20)
[2018-02-02 14:28] LABS: OCCULT BLOOD STOOL POSITIVE (Neg)
[2018-02-02] MEDS ORDERED: magnesium 1gm/100ml D5W IVPB 100 ML IV PRN (14:55)
[2018-02-02] MEDS ORDERED: potassium Cl 40MEQ/NS 500ml 500 ML IV PRN ×2 (14:55)
[2018-02-02] MEDS ORDERED: magnesium Cl slow-release 64mg tablet PO PRN (14:55)
[2018-02-02] MEDS ORDERED: magnesium 4gm in 100ml NS 100 ML IV PRN (14:55)
[2018-02-02] MEDS ORDERED: ondansetron/PF 4mg/2ml inj IV PRN (14:55)
[2018-02-02] MEDS ORDERED: potassium Cl 20 mEq SR tablet PO PRN ×2 (14:55)
[2018-02-02] MEDS ORDERED: morphine 2 MG/ML inj. syringe IV PRN (14:55)
[2018-02-02] MEDS: normal saline 1000ml 1,000 ML IV SCH (16:27)
[2018-02-02 17:00] LABS: CLARITY,URINE CLEAR (Clear); COLOR,URINE YELLOW (Yellow); GLUCOSE, URINE 250 mg/dl (Neg); KETONES,URINE NEGATIVE (Neg); LEUKOCYTE ESTERASE ,URINE NEGATIVE (Neg); NITRITES, URINE NEGATIVE (Neg); OCCULT BLOOD,URINE NEGATIVE (Neg); PROTEIN,URINE TRACE mg/dl (Neg); UROBILINOGEN,URINE 0.2 E.U/dL (0.2-1.0)
[2018-02-02 17:02] LABS: UA COLLECTION TYPE STRAIGHT CATH
[2018-02-02 17:11] LABS: MUCUS STRANDS FEW /LPF (Neg)
[2018-02-02 17:15] LABS: SQUAMOUS EPITHELIAL CELL,UR FEW /LPF (FEW)
[2018-02-02 17:17] LABS: RBC,URINE NONE SEEN /HPF (0-2); WBC,URINE 0-4 /HPF (0-4)
[2018-02-02 17:18] LABS: AMORPHOUS URATES 1+; BACTERIA,URINE NONE SEEN /HPF (Neg)
[2018-02-02 17:44] VITALS: BP 103/54
[2018-02-02 19:00] VITALS: BP 93/51
[2018-02-02 23:00] VITALS: BP 95/52
[2018-02-03] MEDS: normal saline 1000ml 1,000 ML IV SCH ×3 (00:52→21:00)
[2018-02-03 03:00] VITALS: BP 127/58
[2018-02-03 05:54] LABS: ALBUMIN 1.7 G/DL (3.4-5.0); ANION GAP 8 (8-16); BLOOD UREA NITROGEN 35 MG/DL (7-18); BUN/CREATININE RATIO 26.1 (5.4-32.0); CALCIUM 7.8 MG/DL (8.5-10.1); CHLORIDE 113 MMOL/L (99-107); CREATININE 1.34 MG/DL (0.60-1.10); GLUCOSE 95 MG/DL (70-104); MAGNESIUM 1.6 MG/DL (1.5-2.4); POTASSIUM 3.7 MMOL/L (3.5-5.1); SODIUM 143 MMOL/L (135-145); TOTAL CARBON DIOXIDE 22.4 MMOL/L (24-32); eGFR 50 ML/MIN
[2018-02-03 06:00] VITALS: BP 93/52
[2018-02-03] MEDS: K and/or MAG REPLACEMENT MC SCH (06:34)
[2018-02-03 06:49] LABS: BASOPHILS % (AUTO) 0.1 % (0-1); EOSINOPHILS # (AUTO) 0.2 X10'3 (0-0.9); EOSINOPHILS % (AUTO) 2.1 % (0-6); HEMATOCRIT 25.4 % (42.0-52.0); HEMOGLOBIN 8.3 g/dl (14.0-17.9); LYMPHOCYTES # (AUTO) 0.9 X10'3 (1.1-4.8); LYMPHOCYTES % (AUTO) 10.5 % (21-51); MEAN CORPUSCULAR HEMOGLOBIN 29.6 PG (27.0-31.0); MEAN CORPUSCULAR HGB CONC 32.6 % (33.0-36.5); MEAN CORPUSCULAR VOLUME 90.8 FL (78-98); MEAN PLATELET VOLUME 9.2 FL (7.4-10.4); MONOCYTES # (AUTO) 0.9 X10'3 (0-0.9); MONOCYTES % (AUTO) 10.8 % (2-12); NEUTROPHILS # (AUTO) 6.4 X10'3 (1.8-7.7); NEUTROPHILS % (AUTO) 76.5 % (42-75); PLATELET COUNT 157 X10'3 (140-440); RED BLOOD COUNT 2.79 X10'6 (4.70-6.10); RED CELL DISTRIBUTION WIDTH 14.7 % (11.5-14.5)
[2018-02-03 06:50] LABS: WHITE BLOOD COUNT 8.4 X10'3 (4.5-11.0)
[2018-02-03 11:00] VITALS: BP 85/52
[2018-02-03] MEDS ORDERED: potassium chloride 10mEq ER tablet PO PRN (11:30)
[2018-02-03] MEDS ORDERED: furosemide 40mg tablet PO PRN (11:30)
[2018-02-03] MEDS: albuterol 2.5 MG/3 ML nebule NEB PRN ×3 (12:41→20:45)
[2018-02-03 13:42] LABS: HEMATOCRIT 25.2 % (42.0-52.0); HEMOGLOBIN 8.2 g/dl (14.0-17.9); MEAN CORPUSCULAR HEMOGLOBIN 29.2 PG (27.0-31.0); MEAN CORPUSCULAR HGB CONC 32.3 % (33.0-36.5); MEAN CORPUSCULAR VOLUME 90.3 FL (78-98); MEAN PLATELET VOLUME 9.6 FL (7.4-10.4); PLATELET COUNT 171 X10'3 (140-440); RED BLOOD COUNT 2.79 X10'6 (4.70-6.10); RED CELL DISTRIBUTION WIDTH 14.9 % (11.5-14.5); WHITE BLOOD COUNT 9.6 X10'3 (4.5-11.0)
[2018-02-03] MEDS ORDERED: heparin sodium, porcine/PF 100unit/ml 5ML syringe ONE (14:05)
[2018-02-03] MEDS ORDERED: albuterol 2.5 MG/3 ML nebule NEB SCH (16:00)
[2018-02-03 16:30] VITALS: BP 117/64
[2018-02-03] MEDS: levoTHYROXINE 125mcg tablet PO SCH (16:49)
[2018-02-03] MEDS: gabapentin 300mg capsule PO SCH ×2 (16:50→20:58)
[2018-02-03] MEDS: theophylline anhydrous 100mg ER capsule 24-hour PO SCH (16:50)
[2018-02-03] MEDS: pravastatin 40mg tablet PO SCH (16:51)
[2018-02-03] MEDS: hydrOXYzine 25 MG tablet PO PRN (17:03)
[2018-02-03] MEDS: oxybutynin 5mg tablet PO SCH ×2 (17:04→21:00)
[2018-02-03 19:00] VITALS: BP 97/52
[2018-02-03] MEDS ORDERED: LUBIPROSTONE 8 MCG PO SCH (20:00)
[2018-02-03] MEDS: sotalol 80mg tablet PO SCH (20:00)
[2018-02-03] MEDS: pantoprazole 40 MG vial IV SCH (20:56)
[2018-02-03] MEDS: mirtazapine 15mg tablet PO SCH (20:58)
[2018-02-03] MEDS: tamsulosin 0.4mg capsule PO SCH (20:59)
[2018-02-03] MEDS: dutasteride 0.5 MG capsule PO SCH (20:59)
[2018-02-03 23:00] VITALS: BP 114/53
[2018-02-04] VITALS (7 sets, daily range): BP systolic 94–138; BP diastolic 36–78
[2018-02-04] MEDS: acetaminophen 325mg tablet PO PRN ×2 (00:17→07:25)
[2018-02-04] MEDS: albuterol 2.5 MG/3 ML nebule NEB PRN (02:48)
[2018-02-04] MEDS: normal saline 1000ml 1,000 ML IV SCH ×3 (03:11→19:11)
[2018-02-04 06:42] LABS: BASOPHILS % (AUTO) 0.4 % (0-1); EOSINOPHILS # (AUTO) 0.1 X10'3 (0-0.9); EOSINOPHILS % (AUTO) 1.6 % (0-6); HEMATOCRIT 24.4 % (42.0-52.0); HEMOGLOBIN 7.8 g/dl (14.0-17.9); LYMPHOCYTES # (AUTO) 0.9 X10'3 (1.1-4.8); MEAN CORPUSCULAR HEMOGLOBIN 29.4 PG (27.0-31.0); MEAN CORPUSCULAR HGB CONC 32.1 % (33.0-36.5); MEAN CORPUSCULAR VOLUME 91.6 FL (78-98); MEAN PLATELET VOLUME 9.5 FL (7.4-10.4); MONOCYTES # (AUTO) 0.7 X10'3 (0-0.9); MONOCYTES % (AUTO) 12.1 % (2-12); NEUTROPHILS # (AUTO) 3.7 X10'3 (1.8-7.7); NEUTROPHILS % (AUTO) 68.9 % (42-75); PLATELET COUNT 114 X10'3 (140-440); RED BLOOD COUNT 2.66 X10'6 (4.70-6.10); RED CELL DISTRIBUTION WIDTH 14.8 % (11.5-14.5); WHITE BLOOD COUNT 5.4 X10'3 (4.5-11.0)
[2018-02-04 06:44] LABS: ALBUMIN 1.8 G/DL (3.4-5.0); ANION GAP 11 (8-16); BLOOD UREA NITROGEN 26 MG/DL (7-18); BUN/CREATININE RATIO 18.8 (5.4-32.0); CALCIUM 7.8 MG/DL (8.5-10.1); CHLORIDE 112 MMOL/L (99-107); CREATININE 1.38 MG/DL (0.60-1.10); GLUCOSE 114 MG/DL (70-104); MAGNESIUM 1.6 MG/DL (1.5-2.4); POTASSIUM 3.5 MMOL/L (3.5-5.1); SODIUM 144 MMOL/L (135-145); eGFR 49 ML/MIN
[2018-02-04] MEDS: folic acid 1mg tablet PO SCH (07:23)
[2018-02-04] MEDS: pantoprazole 40mg Tablet.DR PO SCH (07:23)
[2018-02-04] MEDS: gabapentin 300mg capsule PO SCH ×3 (07:24→22:59)
[2018-02-04] MEDS: vitamin D (cholecalciferol) 1,000 unit tablet PO SCH (07:25)
[2018-02-04] MEDS: roflumilast 500mcg tablet PO SCH (07:26)
[2018-02-04] MEDS: theophylline anhydrous 100mg ER capsule 24-hour PO SCH (07:28)
[2018-02-04] MEDS: levoTHYROXINE 125mcg tablet PO SCH (07:29)
[2018-02-04] MEDS: predniSONE 5mg tablet PO SCH (07:29)
[2018-02-04] MEDS: oxybutynin 5mg tablet PO SCH ×2 (07:30→22:58)
[2018-02-04] MEDS: iron polysaccharide complex 150mg capsule PO SCH (07:31)
[2018-02-04] MEDS: sotalol 80mg tablet PO SCH ×2 (08:00→22:59)
[2018-02-04] MEDS ORDERED: non-formulary drug (Roflumilast (Daliresp) 1 TAB) PO SCH (08:00)
[2018-02-04] MEDS: pantoprazole 40 MG vial IV SCH (08:00)
[2018-02-04] MEDS: K and/or MAG REPLACEMENT MC SCH (08:00)
[2018-02-04] MEDS: Liraglutide (Victoza) 1.2 MG SQ SCH (10:54)
[2018-02-04] MEDS ORDERED: PEG 3350/Na sulf,bicarb,Cl/KCl oral sol 4 liter bottle PO ONE (15:40)
[2018-02-04] MEDS: pravastatin 40mg tablet PO SCH (18:08)
[2018-02-04] MEDS: tamsulosin 0.4mg capsule PO SCH (22:58)
[2018-02-04] MEDS: dutasteride 0.5 MG capsule PO SCH (22:58)
[2018-02-04] MEDS: mirtazapine 15mg tablet PO SCH (22:59)
[2018-02-05] VITALS (12 sets, daily range): BP systolic 101–134; BP diastolic 44–70
[2018-02-05] MEDS: normal saline 1000ml 1,000 ML IV SCH ×2 (03:11→16:00)
[2018-02-05 07:00] LABS: ANION GAP 10 (8-16); BASOPHILS % (AUTO) 0.4 % (0-1); BLOOD UREA NITROGEN 17 MG/DL (7-18); BUN/CREATININE RATIO 13.5 (5.4-32.0); CALCIUM 7.8 MG/DL (8.5-10.1); CHLORIDE 112 MMOL/L (99-107); CREATININE 1.26 MG/DL (0.60-1.10); EOSINOPHILS # (AUTO) 0.2 X10'3 (0-0.9); EOSINOPHILS % (AUTO) 2.4 % (0-6); GLUCOSE 128 MG/DL (70-104); HEMATOCRIT 23.4 % (42.0-52.0); HEMOGLOBIN 7.6 g/dl (14.0-17.9); LYMPHOCYTES # (AUTO) 0.7 X10'3 (1.1-4.8); LYMPHOCYTES % (AUTO) 8.5 % (21-51); MAGNESIUM 1.5 MG/DL (1.5-2.4); MEAN CORPUSCULAR HEMOGLOBIN 29.3 PG (27.0-31.0); MEAN CORPUSCULAR HGB CONC 32.5 % (33.0-36.5); MEAN CORPUSCULAR VOLUME 90.1 FL (78-98); MEAN PLATELET VOLUME 8.9 FL (7.4-10.4); MONOCYTES # (AUTO) 0.8 X10'3 (0-0.9); MONOCYTES % (AUTO) 8.9 % (2-12); NEUTROPHILS # (AUTO) 6.8 X10'3 (1.8-7.7); NEUTROPHILS % (AUTO) 79.8 % (42-75); PLATELET COUNT 156 X10'3 (140-440); POTASSIUM 3.2 MMOL/L (3.5-5.1); RED CELL DISTRIBUTION WIDTH 14.3 % (11.5-14.5); SODIUM 146 MMOL/L (135-145); TOTAL CARBON DIOXIDE 24.5 MMOL/L (24-32); WHITE BLOOD COUNT 8.5 X10'3 (4.5-11.0); eGFR 54 ML/MIN
[2018-02-05] MEDS: K and/or MAG REPLACEMENT MC SCH (08:00)
[2018-02-05] MEDS: sotalol 80mg tablet PO SCH ×2 (08:19→21:17)
[2018-02-05] MEDS: predniSONE 5mg tablet PO SCH ×2 (08:20→13:43)
[2018-02-05] MEDS: oxybutynin 5mg tablet PO SCH ×2 (08:20→21:15)
[2018-02-05] MEDS: levoTHYROXINE 125mcg tablet PO SCH (08:20)
[2018-02-05] MEDS: gabapentin 300mg capsule PO SCH ×3 (08:20→21:16)
[2018-02-05] MEDS: pantoprazole 40mg Tablet.DR PO SCH (08:20)
[2018-02-05] MEDS: roflumilast 500mcg tablet PO SCH (08:22)
[2018-02-05] MEDS ORDERED: LIDOcaine 1% 30ml vial 5 ML in potassium Cl 40MEQ/NS 500ml 500 ML IV PRN (08:30)
[2018-02-05] MEDS ORDERED: fentaNYL/PF 50MCG/1 ML 2ML syringe ONE (11:04)
[2018-02-05] MEDS ORDERED: MIDAZolam 5mg/5ml vial ONE (11:04)
[2018-02-05] MEDS: folic acid 1mg tablet PO SCH (13:42)
[2018-02-05] MEDS: vitamin D (cholecalciferol) 1,000 unit tablet PO SCH (13:43)
[2018-02-05] MEDS: theophylline anhydrous 100mg ER capsule 24-hour PO SCH (13:45)
[2018-02-05] MEDS: iron polysaccharide complex 150mg capsule PO SCH (13:46)
[2018-02-05] MEDS: Liraglutide (Victoza) 1.2 MG SQ SCH (13:50)
[2018-02-05] MEDS: pravastatin 40mg tablet PO SCH (17:22)
[2018-02-05] MEDS: tamsulosin 0.4mg capsule PO SCH (21:16)
[2018-02-05] MEDS: dutasteride 0.5 MG capsule PO SCH (21:17)
[2018-02-05] MEDS: mirtazapine 15mg tablet PO SCH (21:18)
[2018-02-05] MEDS: albuterol 2.5 MG/3 ML nebule NEB PRN (21:45)
[2018-02-06] VITALS (19 sets, daily range): BP systolic 94–114; BP diastolic 43–64
[2018-02-06] MEDS: acetaminophen 325mg tablet PO PRN (00:40)
[2018-02-06] MEDS: normal saline 1000ml 1,000 ML IV SCH ×4 (00:41→19:11)
[2018-02-06] MEDS: albuterol 2.5 MG/3 ML nebule NEB PRN ×2 (02:36→11:58)
[2018-02-06 06:05] LABS: BASOPHILS % (AUTO) 0.4 % (0-1); EOSINOPHILS # (AUTO) 0.1 X10'3 (0-0.9); EOSINOPHILS % (AUTO) 1.2 % (0-6); LYMPHOCYTES # (AUTO) 0.9 X10'3 (1.1-4.8); LYMPHOCYTES % (AUTO) 10.9 % (21-51); MEAN CORPUSCULAR HEMOGLOBIN 29.3 PG (27.0-31.0); MEAN CORPUSCULAR HGB CONC 32.1 % (33.0-36.5); MEAN CORPUSCULAR VOLUME 91.2 FL (78-98); MEAN PLATELET VOLUME 8.9 FL (7.4-10.4); MONOCYTES # (AUTO) 0.6 X10'3 (0-0.9); MONOCYTES % (AUTO) 7.1 % (2-12); NEUTROPHILS # (AUTO) 6.6 X10'3 (1.8-7.7); NEUTROPHILS % (AUTO) 80.4 % (42-75); PLATELET COUNT 168 X10'3 (140-440); RED CELL DISTRIBUTION WIDTH 14.6 % (11.5-14.5); WHITE BLOOD COUNT 8.2 X10'3 (4.5-11.0)
[2018-02-06 06:19] LABS: HEMOGLOBIN 6.7 g/dl (14.0-17.9)
[2018-02-06 06:22] LABS: ALBUMIN 1.7 G/DL (3.4-5.0); ANION GAP 8 (8-16); BLOOD UREA NITROGEN 15 MG/DL (7-18); BUN/CREATININE RATIO 9.7 (5.4-32.0); CALCIUM 7.5 MG/DL (8.5-10.1); CHLORIDE 113 MMOL/L (99-107); CREATININE 1.54 MG/DL (0.60-1.10); GLUCOSE 188 MG/DL (70-104); MAGNESIUM 1.5 MG/DL (1.5-2.4); POTASSIUM 4.3 MMOL/L (3.5-5.1); SODIUM 147 MMOL/L (135-145); TOTAL CARBON DIOXIDE 26.4 MMOL/L (24-32); eGFR 43 ML/MIN
[2018-02-06] MEDS: Liraglutide (Victoza) 1.2 MG SQ SCH (07:32)
[2018-02-06] MEDS: gabapentin 300mg capsule PO SCH ×3 (07:35→20:07)
[2018-02-06] MEDS: theophylline anhydrous 100mg ER capsule 24-hour PO SCH (07:36)
[2018-02-06] MEDS: roflumilast 500mcg tablet PO SCH (07:36)
[2018-02-06] MEDS: levoTHYROXINE 125mcg tablet PO SCH (07:36)
[2018-02-06] MEDS: folic acid 1mg tablet PO SCH (07:36)
[2018-02-06] MEDS: pantoprazole 40mg Tablet.DR PO SCH (07:36)
[2018-02-06] MEDS: vitamin D (cholecalciferol) 1,000 unit tablet PO SCH (07:36)
[2018-02-06] MEDS: iron polysaccharide complex 150mg capsule PO SCH (07:36)
[2018-02-06] MEDS: oxybutynin 5mg tablet PO SCH ×2 (07:36→20:06)
[2018-02-06] MEDS: sotalol 80mg tablet PO SCH ×2 (07:36→20:07)
[2018-02-06] MEDS: K and/or MAG REPLACEMENT MC SCH (08:00)
[2018-02-06 17:25] LABS: BASOPHILS # (AUTO) 0.1 X10'3 (0-0.2); BASOPHILS % (AUTO) 0.6 % (0-1); EOSINOPHILS # (AUTO) 0.2 X10'3 (0-0.9); EOSINOPHILS % (AUTO) 1.8 % (0-6); HEMATOCRIT 28.5 % (42.0-52.0); HEMOGLOBIN 9.3 g/dl (14.0-17.9); LYMPHOCYTES # (AUTO) 0.8 X10'3 (1.1-4.8); LYMPHOCYTES % (AUTO) 8.7 % (21-51); MEAN CORPUSCULAR HEMOGLOBIN 30.1 PG (27.0-31.0); MEAN CORPUSCULAR HGB CONC 32.8 % (33.0-36.5); MEAN CORPUSCULAR VOLUME 91.8 FL (78-98); MEAN PLATELET VOLUME 8.5 FL (7.4-10.4); MONOCYTES # (AUTO) 0.6 X10'3 (0-0.9); MONOCYTES % (AUTO) 6.2 % (2-12); NEUTROPHILS # (AUTO) 7.5 X10'3 (1.8-7.7); NEUTROPHILS % (AUTO) 82.7 % (42-75); PLATELET COUNT 172 X10'3 (140-440); WHITE BLOOD COUNT 9.1 X10'3 (4.5-11.0)
[2018-02-06] MEDS: pravastatin 40mg tablet PO SCH (17:52)
[2018-02-06] MEDS: tamsulosin 0.4mg capsule PO SCH (20:03)
[2018-02-06] MEDS: dutasteride 0.5 MG capsule PO SCH (20:03)
[2018-02-06] MEDS: mirtazapine 15mg tablet PO SCH (20:07)
[2018-02-07] VITALS (8 sets, daily range): BP systolic 90–140; BP diastolic 50–79
[2018-02-07 06:15] LABS: ALBUMIN 1.8 G/DL (3.4-5.0); ANION GAP 8 (8-16); BLOOD UREA NITROGEN 15 MG/DL (7-18); BUN/CREATININE RATIO 11.1 (5.4-32.0); CALCIUM 7.6 MG/DL (8.5-10.1); CHLORIDE 112 MMOL/L (99-107); CREATININE 1.35 MG/DL (0.60-1.10); GLUCOSE 139 MG/DL (70-104); MAGNESIUM 1.5 MG/DL (1.5-2.4); POTASSIUM 3.7 MMOL/L (3.5-5.1); SODIUM 144 MMOL/L (135-145); TOTAL CARBON DIOXIDE 24.3 MMOL/L (24-32); eGFR 50 ML/MIN
[2018-02-07 07:28] LABS: BASOPHILS # (AUTO) 0.1 X10'3 (0-0.2); BASOPHILS % (AUTO) 0.5 % (0-1); EOSINOPHILS # (AUTO) 0.1 X10'3 (0-0.9); EOSINOPHILS % (AUTO) 1.4 % (0-6); HEMATOCRIT 29.2 % (42.0-52.0); HEMOGLOBIN 9.5 g/dl (14.0-17.9); LYMPHOCYTES # (AUTO) 0.5 X10'3 (1.1-4.8); LYMPHOCYTES % (AUTO) 4.9 % (21-51); MEAN CORPUSCULAR HEMOGLOBIN 29.5 PG (27.0-31.0); MEAN CORPUSCULAR HGB CONC 32.6 % (33.0-36.5); MEAN CORPUSCULAR VOLUME 90.6 FL (78-98); MEAN PLATELET VOLUME 8.3 FL (7.4-10.4); MONOCYTES # (AUTO) 0.7 X10'3 (0-0.9); MONOCYTES % (AUTO) 6.7 % (2-12); NEUTROPHILS # (AUTO) 9.3 X10'3 (1.8-7.7); NEUTROPHILS % (AUTO) 86.5 % (42-75); PLATELET COUNT 169 X10'3 (140-440); RED BLOOD COUNT 3.22 X10'6 (4.70-6.10); WHITE BLOOD COUNT 10.7 X10'3 (4.5-11.0)
[2018-02-07] MEDS: K and/or MAG REPLACEMENT MC SCH (08:00)
[2018-02-07] MEDS: pantoprazole 40mg Tablet.DR PO SCH (08:20)
[2018-02-07] MEDS: gabapentin 300mg capsule PO SCH ×3 (08:21→20:50)
[2018-02-07] MEDS: roflumilast 500mcg tablet PO SCH (08:21)
[2018-02-07] MEDS: oxybutynin 5mg tablet PO SCH ×2 (08:21→20:50)
[2018-02-07] MEDS: sotalol 80mg tablet PO SCH ×2 (08:21→20:49)
[2018-02-07] MEDS: folic acid 1mg tablet PO SCH (08:21)
[2018-02-07] MEDS: iron polysaccharide complex 150mg capsule PO SCH (08:22)
[2018-02-07] MEDS: theophylline anhydrous 100mg ER capsule 24-hour PO SCH (08:22)
[2018-02-07] MEDS: levoTHYROXINE 125mcg tablet PO SCH (08:22)
[2018-02-07] MEDS: vitamin D (cholecalciferol) 1,000 unit tablet PO SCH (08:22)
[2018-02-07] MEDS: predniSONE 5mg tablet PO SCH (08:22)
[2018-02-07] MEDS: Liraglutide (Victoza) 1.2 MG SQ SCH (08:23)
[2018-02-07] MEDS: acetaminophen 325mg tablet PO PRN ×2 (08:27→20:54)
[2018-02-07] MEDS: albuterol 2.5 MG/3 ML nebule NEB PRN ×2 (08:51→19:01)
[2018-02-07] MEDS: hydrOXYzine 25 MG tablet PO PRN (11:10)
[2018-02-07] MEDS: normal saline 1000ml 1,000 ML IV SCH ×3 (11:38→19:11)
[2018-02-07] MEDS: pravastatin 40mg tablet PO SCH (17:23)
[2018-02-07] MEDS: mirtazapine 15mg tablet PO SCH (20:50)
[2018-02-07] MEDS: tamsulosin 0.4mg capsule PO SCH (20:50)
[2018-02-07] MEDS: dutasteride 0.5 MG capsule PO SCH (20:50)
[2018-02-08] VITALS (7 sets, daily range): BP systolic 98–126; BP diastolic 53–61
[2018-02-08] MEDS: normal saline 1000ml 1,000 ML IV SCH ×3 (03:11→14:13)
[2018-02-08] MEDS: acetaminophen 325mg tablet PO PRN ×2 (03:28→20:44)
[2018-02-08] MEDS: Liraglutide (Victoza) 1.2 MG SQ SCH (07:20)
[2018-02-08 07:34] LABS: MAGNESIUM 1.5 MG/DL (1.5-2.4); POTASSIUM 3.4 MMOL/L (3.5-5.1)
[2018-02-08] MEDS: sotalol 80mg tablet PO SCH ×2 (07:42→20:40)
[2018-02-08] MEDS: gabapentin 300mg capsule PO SCH ×3 (07:42→20:40)
[2018-02-08] MEDS: roflumilast 500mcg tablet PO SCH (07:42)
[2018-02-08] MEDS: iron polysaccharide complex 150mg capsule PO SCH (07:43)
[2018-02-08] MEDS: folic acid 1mg tablet PO SCH (07:43)
[2018-02-08] MEDS: oxybutynin 5mg tablet PO SCH ×2 (07:43→20:40)
[2018-02-08] MEDS: predniSONE 5mg tablet PO SCH (07:44)
[2018-02-08] MEDS: pantoprazole 40mg Tablet.DR PO SCH (07:45)
[2018-02-08] MEDS: levoTHYROXINE 125mcg tablet PO SCH (07:45)
[2018-02-08] MEDS: theophylline anhydrous 100mg ER capsule 24-hour PO SCH (07:46)
[2018-02-08] MEDS: vitamin D (cholecalciferol) 1,000 unit tablet PO SCH (07:46)
[2018-02-08] MEDS: K and/or MAG REPLACEMENT MC SCH ×2 (08:00→09:42)
[2018-02-08] MEDS ORDERED: potassium Cl 20 mEq SR tablet PO PRN (08:50)
[2018-02-08] MEDS ORDERED: potassium Cl 40MEQ/NS 500ml 500 ML IV PRN ×2 (08:50)
[2018-02-08] MEDS: potassium Cl 20 mEq SR tablet PO PRN ×3 (09:46→18:16)
[2018-02-08] MEDS: albuterol 2.5 MG/3 ML nebule NEB PRN ×4 (10:19→23:44)
[2018-02-08 13:23] LABS: BASOPHILS # (AUTO) 0.1 X10'3 (0-0.2); EOSINOPHILS # (AUTO) 0.2 X10'3 (0-0.9); EOSINOPHILS % (AUTO) 1.8 % (0-6); HEMATOCRIT 29.8 % (42.0-52.0); HEMOGLOBIN 9.6 g/dl (14.0-17.9); LYMPHOCYTES # (AUTO) 0.5 X10'3 (1.1-4.8); LYMPHOCYTES % (AUTO) 5.4 % (21-51); MEAN CORPUSCULAR HEMOGLOBIN 29.5 PG (27.0-31.0); MEAN CORPUSCULAR HGB CONC 32.1 % (33.0-36.5); MEAN CORPUSCULAR VOLUME 92.1 FL (78-98); MEAN PLATELET VOLUME 8.7 FL (7.4-10.4); MONOCYTES # (AUTO) 0.3 X10'3 (0-0.9); NEUTROPHILS # (AUTO) 8.2 X10'3 (1.8-7.7); NEUTROPHILS % (AUTO) 88.8 % (42-75); PLATELET COUNT 183 X10'3 (140-440); RED BLOOD COUNT 3.23 X10'6 (4.70-6.10); RED CELL DISTRIBUTION WIDTH 15.1 % (11.5-14.5); WHITE BLOOD COUNT 9.3 X10'3 (4.5-11.0)
[2018-02-08] MEDS: levoFLOXACIN-Levaquin 500mg/D5 100 ML IV SCH (15:48)
[2018-02-08] MEDS: pravastatin 40mg tablet PO SCH (17:15)
[2018-02-08] MEDS: mirtazapine 15mg tablet PO SCH (20:40)
[2018-02-08] MEDS: dutasteride 0.5 MG capsule PO SCH (20:40)
[2018-02-08] MEDS: tamsulosin 0.4mg capsule PO SCH (20:40)
[2018-02-09] VITALS (7 sets, daily range): BP systolic 103–136; BP diastolic 50–69
[2018-02-09] MEDS: hydrOXYzine 25 MG tablet PO PRN (02:16)
[2018-02-09 05:01] LABS: BASOPHILS # (AUTO) 0.1 X10'3 (0-0.2); BASOPHILS % (AUTO) 1.8 % (0-1); EOSINOPHILS # (AUTO) 0.1 X10'3 (0-0.9); EOSINOPHILS % (AUTO) 1.5 % (0-6); HEMATOCRIT 27.6 % (42.0-52.0); HEMOGLOBIN 8.9 g/dl (14.0-17.9); LYMPHOCYTES % (AUTO) 12.7 % (21-51); MEAN CORPUSCULAR HEMOGLOBIN 29.5 PG (27.0-31.0); MEAN CORPUSCULAR HGB CONC 32.3 % (33.0-36.5); MEAN CORPUSCULAR VOLUME 91.1 FL (78-98); MEAN PLATELET VOLUME 8.8 FL (7.4-10.4); MONOCYTES # (AUTO) 0.6 X10'3 (0-0.9); MONOCYTES % (AUTO) 7.4 % (2-12); NEUTROPHILS # (AUTO) 5.8 X10'3 (1.8-7.7); NEUTROPHILS % (AUTO) 76.6 % (42-75); PLATELET COUNT 153 X10'3 (140-440); RED BLOOD COUNT 3.02 X10'6 (4.70-6.10); WHITE BLOOD COUNT 7.6 X10'3 (4.5-11.0)
[2018-02-09 05:24] LABS: ALANINE AMINOTRANSFERASE 14 U/L (12-78); ALBUMIN 1.8 G/DL (3.4-5.0); ALBUMIN/GLOBULIN RATIO 0.7 (1.1-1.5); ALKALINE PHOSPHATASE 56 IU/L (46-116); ANION GAP 7 (8-16); ASPARTATE AMINO TRANSFERASE 13 U/L (10-37); BILIRUBIN,TOTAL 0.3 MG/DL (0.1-1.0); BLOOD UREA NITROGEN 17 MG/DL (7-18); BUN/CREATININE RATIO 13.1 (5.4-32.0); CALCIUM 8.2 MG/DL (8.5-10.1); CHLORIDE 112 MMOL/L (99-107); GLUCOSE 111 MG/DL (70-104); MAGNESIUM 1.5 MG/DL (1.5-2.4); POTASSIUM 4.1 MMOL/L (3.5-5.1); SODIUM 145 MMOL/L (135-145); TOTAL CARBON DIOXIDE 26.4 MMOL/L (24-32); TOTAL PROTEIN 4.3 G/DL (6.4-8.2); eGFR 52 ML/MIN
[2018-02-09] MEDS: levoFLOXACIN-Levaquin 500mg/D5 100 ML IV SCH (07:26)
[2018-02-09] MEDS: albuterol 2.5 MG/3 ML nebule NEB PRN ×4 (07:28→21:13)
[2018-02-09] MEDS: iron polysaccharide complex 150mg capsule PO SCH (07:36)
[2018-02-09] MEDS: predniSONE 5mg tablet PO SCH (07:36)
[2018-02-09] MEDS: vitamin D (cholecalciferol) 1,000 unit tablet PO SCH (07:37)
[2018-02-09] MEDS: gabapentin 300mg capsule PO SCH ×3 (07:37→20:38)
[2018-02-09] MEDS: acetaminophen 325mg tablet PO PRN ×2 (07:37→23:29)
[2018-02-09] MEDS: oxybutynin 5mg tablet PO SCH ×2 (07:37→20:36)
[2018-02-09] MEDS: levoTHYROXINE 125mcg tablet PO SCH (07:38)
[2018-02-09] MEDS: folic acid 1mg tablet PO SCH (07:38)
[2018-02-09] MEDS: pantoprazole 40mg Tablet.DR PO SCH (07:38)
[2018-02-09] MEDS: sotalol 80mg tablet PO SCH ×2 (07:38→20:48)
[2018-02-09] MEDS: theophylline anhydrous 100mg ER capsule 24-hour PO SCH (08:00)
[2018-02-09] MEDS: Liraglutide (Victoza) 1.2 MG SQ SCH (08:00)
[2018-02-09] MEDS: K and/or MAG REPLACEMENT MC SCH (08:00)
[2018-02-09] MEDS: roflumilast 500mcg tablet PO SCH (08:00)
[2018-02-09] MEDS: pravastatin 40mg tablet PO SCH (17:32)
[2018-02-09] MEDS ORDERED: methylPREDNISolone sod succ/PF 40mg inj. IV ONE (20:00)
[2018-02-09] MEDS: lactobacillus rhamnosus 10,000 MMU CELLS/CAPSULE PO SCH (20:35)
[2018-02-09] MEDS: mirtazapine 15mg tablet PO SCH (20:36)
[2018-02-09] MEDS: dutasteride 0.5 MG capsule PO SCH (20:37)
[2018-02-09] MEDS: tamsulosin 0.4mg capsule PO SCH (20:37)
[2018-02-10 02:00] VITALS: BP 133/66
[2018-02-10 07:24] VITALS: BP 137/58
[2018-02-10] MEDS: pantoprazole 40mg Tablet.DR PO SCH (07:59)
[2018-02-10] MEDS: theophylline anhydrous 100mg ER capsule 24-hour PO SCH (07:59)
[2018-02-10] MEDS: levoTHYROXINE 125mcg tablet PO SCH (08:00)
[2018-02-10] MEDS: vitamin D (cholecalciferol) 1,000 unit tablet PO SCH (08:00)
[2018-02-10] MEDS: roflumilast 500mcg tablet PO SCH (08:00)
[2018-02-10] MEDS: lactobacillus rhamnosus 10,000 MMU CELLS/CAPSULE PO SCH (08:00)
[2018-02-10] MEDS: K and/or MAG REPLACEMENT MC SCH (08:00)
[2018-02-10] MEDS ORDERED: levoFLOXACIN-Levaquin 250mg/D5 50 ML IV SCH (08:00)
[2018-02-10] MEDS: iron polysaccharide complex 150mg capsule PO SCH (08:01)
[2018-02-10] MEDS: predniSONE 5mg tablet PO SCH (08:01)
[2018-02-10] MEDS: gabapentin 300mg capsule PO SCH (08:01)
[2018-02-10] MEDS: folic acid 1mg tablet PO SCH (08:01)
[2018-02-10] MEDS: oxybutynin 5mg tablet PO SCH (08:01)
[2018-02-10] MEDS: sotalol 80mg tablet PO SCH (08:19)
[2018-02-10] MEDS: Liraglutide (Victoza) 1.2 MG SQ SCH (08:20)
[2018-02-10] MEDS: albuterol 2.5 MG/3 ML nebule NEB PRN (09:54)
[2018-02-10] MEDS: acetaminophen 325mg tablet PO PRN (10:19)
[2018-02-10 11:24] VITALS: BP 105/58
[2018-02-10] MEDS ORDERED: LEVO500T2 PO (12:31)
[2018-02-10] MEDS ORDERED: TAMS0.4C32 PO (12:31)
== END 2018-02-10 14:00 | DRG 377 ==
LOC: ER 12:28 → ED HOLD 14:52 → PCU 3S 17:30
PROVIDERS: ADMIT Internal Medicine; ATTEND Internal Medicine
PROC: 5A09357 Assistance with Respiratory Ventilation, Less than 24 Consecutive Hours, Continuous Positive Airway Pressure (ICD-10-PCS; 2018-02-02)
PROC: 5A09357 Assistance with Respiratory Ventilation, Less than 24 Consecutive Hours, Continuous Positive Airway Pressure (ICD-10-PCS; 2018-02-03)
PROC: CD171ZZ Planar Nuclear Medicine Imaging of Gastrointestinal Tract using Technetium 99m (Tc-99m) (ICD-10-PCS; 2018-02-03)
PROC: 5A09357 Assistance with Respiratory Ventilation, Less than 24 Consecutive Hours, Continuous Positive Airway Pressure (ICD-10-PCS; 2018-02-04)
PROC: 0DJD8ZZ Inspection of Lower Intestinal Tract, Via Natural or Artificial Opening Endoscopic (ICD-10-PCS; principal; 2018-02-05)
PROC: 5A09357 Assistance with Respiratory Ventilation, Less than 24 Consecutive Hours, Continuous Positive Airway Pressure (ICD-10-PCS; 2018-02-05)
PROC: 5A09357 Assistance with Respiratory Ventilation, Less than 24 Consecutive Hours, Continuous Positive Airway Pressure (ICD-10-PCS; 2018-02-06)
PROC: 30233N1 Transfusion of Nonautologous Red Blood Cells into Peripheral Vein, Percutaneous Approach (ICD-10-PCS; 2018-02-06)
PROC: 5A09357 Assistance with Respiratory Ventilation, Less than 24 Consecutive Hours, Continuous Positive Airway Pressure (ICD-10-PCS; 2018-02-07)
PROC: 5A09357 Assistance with Respiratory Ventilation, Less than 24 Consecutive Hours, Continuous Positive Airway Pressure (ICD-10-PCS; 2018-02-08)
PROC: 5A09357 Assistance with Respiratory Ventilation, Less than 24 Consecutive Hours, Continuous Positive Airway Pressure (ICD-10-PCS; 2018-02-09)
DX: K57.31 Diverticulosis of large intestine without perforation or abscess with bleeding (principal); N17.0 Acute kidney failure with tubular necrosis; J96.20 Acute and chronic respiratory failure, unspecified whether with hypoxia or hypercapnia; J18.9 Pneumonia, unspecified organism; D62 Acute posthemorrhagic anemia; I13.0 Hypertensive heart and chronic kidney disease with heart failure and stage 1 through stage 4 chronic kidney disease, or unspecified chronic kidney disease; J44.1 Chronic obstructive pulmonary disease with (acute) exacerbation; J98.11 Atelectasis; J44.0 Chronic obstructive pulmonary disease with (acute) lower respiratory infection; T45.515A Adverse effect of anticoagulants, initial encounter; E03.9 Hypothyroidism, unspecified; E11.22 Type 2 diabetes mellitus with diabetic chronic kidney disease; E11.42 Type 2 diabetes mellitus with diabetic polyneuropathy; E78.00 Pure hypercholesterolemia, unspecified; E78.5 Hyperlipidemia, unspecified; E86.9 Volume depletion, unspecified; I25.10 Atherosclerotic heart disease of native coronary artery without angina pectoris; I48.2 Chronic atrial fibrillation; F32.9 Major depressive disorder, single episode, unspecified; I50.9 Heart failure, unspecified; M48.061 Spinal stenosis, lumbar region without neurogenic claudication; K21.9 Gastro-esophageal reflux disease without esophagitis; G89.29 Other chronic pain; K63.5 Polyp of colon; N18.9 Chronic kidney disease, unspecified; Z60.2 Problems related to living alone; N40.0 Benign prostatic hyperplasia without lower urinary tract symptoms; K64.4 Residual hemorrhoidal skin tags; K64.8 Other hemorrhoids; Z66 Do not resuscitate; Z90.49 Acquired absence of other specified parts of digestive tract; Z99.81 Dependence on supplemental oxygen; Z88.0 Allergy status to penicillin; Z88.2 Allergy status to sulfonamides; Z79.4 Long term (current) use of insulin; Z79.899 Other long term (current) drug therapy; Z79.52 Long term (current) use of systemic steroids; Z86.73 Personal history of transient ischemic attack (TIA), and cerebral infarction without residual deficits; Z87.11 Personal history of peptic ulcer disease; Z87.891 Personal history of nicotine dependence; Z82.3 Family history of stroke; Y92.89 Other specified places as the place of occurrence of the external cause
CPT/HCPCS: 36415; 45378; 71045; 74176; 78278; 80048; 80053; 81001; 82272; 82948; 83605; 83735; 84132; 84145; 85025; 85027; 85610; 85730; 86885; 86900; 86901; 86920; 87070; 93005; 94640; 94760; 96360; 97110; 97116; 97162; 97530; 99152; 99285; A4620; A9560; C9113; G0378; J1642; J1956; J2250; J2270; J2920; J3010; J3480; J3490; J7030; J7512; P9016; Q0177

== ENCOUNTER 2018-04-20 15:41 | Inpatient (IN) | payer MEDICARE, BC | END 2018-04-26 14:50 | LOC: SUR 3N 23:59 → ER 15:41 → ED HOLD 21:31 | DX: L03.116 Cellulitis of left lower limb (principal); I21.A1 Myocardial infarction type 2; I13.0 Hypertensive heart and chronic kidney disease with heart failure and stage 1 through stage 4 chronic kidney disease, or unspecified chronic kidney disease; G93.40 Encephalopathy, unspecified; N17.9 Acute kidney failure, unspecified; R53.1 Weakness; I48.91 Unspecified atrial fibrillation; E86.0 Dehydration; N18.3 Chronic kidney disease, stage 3 (moderate); I50.9 Heart failure, unspecified ==

== ENCOUNTER 2018-07-11 09:45 | Day surgery (SDC) | payer MEDICARE, BC ==
[~2018-07-11 09:45] MED LIST changes: -CLE150C PO; -HYDR25CA PO; -MIRT15TA PO; +TAMS0.4C32 PO
[2018-07-11] MEDS ORDERED: LIDOcaine/PRILOcaine 5gm cream TP ONE (11:20)
--- NOTE | 2018-07-11 16:25 | NUR ---
Patient arrived safely into [facility] via wheelchair. Patient was admitted to outpatient wound care for return visit with physician. Dressing removed, wounds cleansed and Emla cream applied per order. Patient assessed for changes in conditions, medications and medical history. Dr. Gruber at bedside accompanied by RN. Wound assessed, time out performed by MD/RN. Wound debrided as detailed in the physician progress/procedure note. Plan of care discussed with patient. Dressings placed per MD orders. Patient instructed on the signs and symptoms of infection and to call the [facility] if any occur or to go to the ED if we are closed: Increased pain in wound Increase in drainage from the wound Redness in the skin surrounding the wound Bleeding from the wound Temperature of 101 or greater Patient instructed that elevated blood sugars delay healing of the wound and can cause further complications including but not limited to amputation of toes or feet. Patient instructed that the weight of their body puts a large amount of pressure on their wounds. This pressure keeps the new tissue from growing and inhibits new blood vessels from forming. Explained that, if they continue to bear weight on a body part that has a wound, the time it takes to heal the wound increases, the wound may get worse or the wound may not heal at all. Patient verbalized understanding of all discharge instructions and plan of care and ambulated independently out to [facility] in stable condition with no sign or symptom of distress at time of discharge. Addendum: 07/11/18 at 1628 by Italia Rivero RN Amended: Links added.
== END 2018-07-11 12:04 | disposition home or self-care (01) ==
LOC: WOUND CARE 09:45
PROVIDERS: ATTEND Surgery
DX: E11.622 Type 2 diabetes mellitus with other skin ulcer (principal); L89.312 Pressure ulcer of right buttock, stage 2; L98.412 Non-pressure chronic ulcer of buttock with fat layer exposed; L89.892 Pressure ulcer of other site, stage 2; L98.492 Non-pressure chronic ulcer of skin of other sites with fat layer exposed; I80.201 Phlebitis and thrombophlebitis of unspecified deep vessels of right lower extremity; E11.65 Type 2 diabetes mellitus with hyperglycemia; L02.414 Cutaneous abscess of left upper limb; I25.10 Atherosclerotic heart disease of native coronary artery without angina pectoris; J44.9 Chronic obstructive pulmonary disease, unspecified; K21.9 Gastro-esophageal reflux disease without esophagitis; I11.0 Hypertensive heart disease with heart failure; I50.9 Heart failure, unspecified; E78.00 Pure hypercholesterolemia, unspecified; I48.91 Unspecified atrial fibrillation; I89.0 Lymphedema, not elsewhere classified; Z90.49 Acquired absence of other specified parts of digestive tract; Z79.4 Long term (current) use of insulin; Z79.899 Other long term (current) drug therapy; Z86.73 Personal history of transient ischemic attack (TIA), and cerebral infarction without residual deficits
CPT/HCPCS: 36416; 82948; 97597; A6021; A6212